=== PATIENT | female | born 1975 | race Caucasian/White ===

== ENCOUNTER 2016-08-05 08:55 | Emergency (ER) | payer MEDICAID ==
[~2016-08-05] VITALS: Ht 157.5 cm; Wt 54.4 kg
[~2016-08-05 08:55] MED LIST: MEXATE2.5 MG PO; PREDNISONE10 MG PO; VOLTAREN PO
[2016-08-05 09:07] VITALS: BP 109/71
--- NOTE | 2016-08-05 09:12 | NUR ---
Patient ambulated to bed 05.
--- NOTE | 2016-08-05 09:15 | NUR ---
41/f bib daughter for R lower chest pain under R breast radiating to rside back. Sts 5/10 pain. Sts fell 8days ago. Hx arthritis. Sts takes tylenol for pain at home, no relief. lung sounds clr. no obvious signs of trauma noted. er md made aware. safety and comfort measures provided.
--- NOTE | 2016-08-05 09:44 | NUR ---
MEDICAL STUDENT AT BEDSIDE.
--- NOTE | 2016-08-05 09:48 | NUR ---
PT TAKEN TO CT.
[2016-08-05] MEDS ORDERED: ACETAMINOPHEN EXTRA STRENGTH 500 MG TAB PO ONE (10:45)
[2016-08-05] MEDS ORDERED: IBUPROFEN 600 MG TAB PO ONE (10:45)
--- NOTE | 2016-08-05 11:08 | NUR ---
PT AMBULATE TO RESTROOM.
--- NOTE | 2016-08-05 11:15 | NUR ---
ORANGE SURVEY GIVEN TO PT.
--- NOTE | 2016-08-05 11:22 | NUR ---
Patient discharged with v/s stable. Written and verbal after care instructions given and explained. Patient alert, oriented and verbalized understanding of instructions. Ambulatory with steady gait WITH DAUGHTER. All questions addressed prior to discharge. ID band removed. Patient advised to follow up with PMD. Opportunity to ask questions provided and answered.
[2016-08-05 11:25] VITALS: BP 111/65
== END 2016-08-05 11:22 | disposition home or self-care (01) ==
LOC: MED 08:55
DX: S20.211A Contusion of right front wall of thorax, initial encounter (principal); M06.9 Rheumatoid arthritis, unspecified; K76.0 Fatty (change of) liver, not elsewhere classified; X58.XXXA Exposure to other specified factors, initial encounter; Y93.89 Activity, other specified; Y92.89 Other specified places as the place of occurrence of the external cause; Y99.8 Other external cause status

== ENCOUNTER 2016-08-22 16:45 | Emergency (ER) | payer MEDICAID ==
[~2016-08-22] VITALS: Ht 157.5 cm; Wt 54.4 kg
--- NOTE | 2016-08-22 18:30 | NUR ---
Patient transferred to bed 3 via wheelchair by tech, accompanied by family. RN evaluating patient at bedside.
--- NOTE | 2016-08-22 18:34 | NUR ---
41F BIB FAMILY C/O FALL X 1630 TODAY; FAMILY STATES PT WAS CLEANING AT HOME, TRIPPED AND FELL DOWN 5 STAIR STEPS; DENIES LOC AT THIS TIME; PT A&OX4, PERRL, DENIES BLURRY VISION OR VISION CHANGES AT THIS TIME; PT C/O THROBBING RT SIDE HEAD PAIN, NON-RADIATING, 7/10 AT THIS TIME; MILD SWELLING NOTED TO SITE; PT NOTED W/ABRASIONS TO RT SHOULDER/RT ELBOW; NO ACTIVE BLEEDING NOTED TO SITES AT THIS TIME; BL LUNG SOUNDS CLEAR, RR EVEN/UNLABORED, SKIN IS WARM/DRY; PT DENIES N/V/D AT THIS TIME; HX: ARTHRITIS. PT RESTING IN BED W/ HOB ELEVATED AND IN LOWEST POSITION; POSITIONED FOR COMFORT; ER MD MADE AWARE OF STATUS. WILL CONTINUE TO MONITOR.
--- NOTE | 2016-08-22 19:11 | NUR ---
Pt report given to RUSS CORDOBA. Transfer of care at this time.
--- NOTE | 2016-08-22 19:14 | NUR ---
PT RESTING IN BED, BLANKET PROVIDED. NO S/S OF DISTRESS NOTED AT THE MOMENT.
--- NOTE | 2016-08-22 19:15 | NUR ---
Dr. Palacios evaluating patient at bedside.
[2016-08-22] MEDS ORDERED: LIDOCAINE/EPI 1% 1:100000 20 ML VIAL INJ ONE (19:17)
[2016-08-22] MEDS ORDERED: ACETAMINOPHEN/CODEINE 300/30MG 1 TAB PO ONE (19:35)
[2016-08-22] MEDS ORDERED: KETOROLAC 30 MG/ML VIAL IM ONE (19:35)
--- NOTE | 2016-08-22 19:43 | NUR ---
PT TAKEN TO XRAY
[2016-08-22] MEDS ORDERED: BACITRACIN OINT 500 UNITS/GM PKT TP ONE (19:58)
--- NOTE | 2016-08-22 20:04 | NUR ---
PT REFUSED NORCO. IGGY SANTACRUZ MADE AWARE.
[2016-08-22 20:24] VITALS: BP 101/64
--- NOTE | 2016-08-22 20:24 | NUR ---
Patient discharged with v/s stable. Written and verbal after care instructions given and explained. Patient alert, oriented and verbalized understanding of instructions. Ambulatory with steady gait. All questions addressed prior to discharge. ID band removed. Patient advised to follow up with PMD THIS WK OR RETURN TO ER IF CONDITION WORSENS. Rx of NAPROSYN given. Patient educated on indication of medication including possible reaction and side effects. Opportunity to ask questions provided and answered.
== END 2016-08-22 20:24 | disposition home or self-care (01) ==
LOC: MED 16:45
DX: S40.011A Contusion of right shoulder, initial encounter (principal); S50.311A Abrasion of right elbow, initial encounter; S09.90XA Unspecified injury of head, initial encounter; M19.90 Unspecified osteoarthritis, unspecified site; W19.XXXA Unspecified fall, initial encounter; Y93.89 Activity, other specified; Y92.89 Other specified places as the place of occurrence of the external cause; Y99.8 Other external cause status
CPT/HCPCS: 70450; 73030; 81025; 96372; 99284; J1885; J2001

== ENCOUNTER 2017-03-04 10:48 | Emergency (ER) | payer MEDICAID ==
[~2017-03-04] VITALS: Ht 157.5 cm; Wt 54.0 kg
[~2017-03-04 10:48] MED LIST changes: +MEX2.5 PO; -MEXATE2.5 MG PO; +PRED10TA5 PO; -PREDNISONE10 MG PO; +VOL25 PO; -VOLTAREN PO
[2017-03-04 11:06] VITALS: BP 124/78
--- NOTE | 2017-03-04 11:22 | NUR ---
PATIENT PRESENTS TO ED AFTER A FALL . PT STATES SHE WAS WALKING ON THE SIDEWALK WHEN SHE TRIPPED ON AN UNEVEN PAVEMENT AND FELL AND HIT HER HEAD AND RIGHT LEG . DENIES N/V/D; SKIN IS PINK/WARM/DRY; AAOX4 WITH EVEN AND STEADY GAIT; LUNGS CLEAR BL; HR EVEN AND REGULAR; PT DENIES ANY FEVER, CP, SOB, OR COUGH AT THIS TIME; PATIENT STATES PAIN OF 7/10 AT THIS TIME; VSS; PATIENT POSITIONED FOR COMFORT; HOB ELEVATED; BEDRAILS UP X2; BED DOWN. ER MD MADE AWARE OF PT STATUS.
[2017-03-04] MEDS ORDERED: KETOROLAC 30 MG/ML VIAL IM ONE (11:50)
[2017-03-04 13:29] VITALS: BP 94/63
== END 2017-03-04 13:30 | disposition home or self-care (01) ==
LOC: MED 10:48
DX: S20.211A Contusion of right front wall of thorax, initial encounter (principal); M06.9 Rheumatoid arthritis, unspecified; W18.39XA Other fall on same level, initial encounter; Y93.89 Activity, other specified; Y92.89 Other specified places as the place of occurrence of the external cause; Y99.8 Other external cause status
CPT/HCPCS: 71101; 81002; 96372; 99284; J1885

== ENCOUNTER 2017-03-27 01:52 | Emergency (ER) | payer MEDICAID ==
[~2017-03-27] VITALS: Ht 154.9 cm; Wt 54.4 kg
[2017-03-27 02:12] VITALS: BP 113/63
--- NOTE | 2017-03-27 03:24 | NUR ---
PT PLACED IN BED 8
--- NOTE | 2017-03-27 03:35 | NUR ---
CAME IN WITH C/O SORETHROAT AND COUGH WITH PHLEGM STARTD AT 1700HOURS.
[2017-03-27] MEDS ORDERED: LIDOCAINE VISCOUS 2% 20 ML UDC PO ONE (03:55)
--- NOTE | 2017-03-27 04:00 | NUR ---
MEDICATED PER ERMDS ORDER, PATIENT TOLERATED WELL.
[2017-03-27 04:15] VITALS: BP 122/75
--- NOTE | 2017-03-27 04:15 | NUR ---
Patient discharged with v/s stable. Written and verbal after care instructions given and explained. Patient verbalized understanding. Ambulatory with steady gait. All questions addressed prior to discharge. Advised to follow up with PMD.
== END 2017-03-27 04:15 | disposition home or self-care (01) ==
LOC: MED 01:52
DX: J02.9 Acute pharyngitis, unspecified (principal); M06.80 Other specified rheumatoid arthritis, unspecified site; Z79.899 Other long term (current) drug therapy
CPT/HCPCS: 99282

== ENCOUNTER 2017-07-08 15:56 | Emergency (ER) | payer MEDICAID ==
[~2017-07-08] VITALS: Ht 157.5 cm; Wt 53.6 kg
[2017-07-08 16:00] VITALS: BP 116/74
--- NOTE | 2017-07-08 16:20 | NUR ---
PATIENT AMB. TO CHAIR #E WITH FAMILY
--- NOTE | 2017-07-08 16:32 | NUR ---
DR. CABALLERO ASSESSING PATIENT IN BED#E
[2017-07-08] MEDS ORDERED: HYDROGEN PEROXIDE 3% 240 ML BTL TP ONE (16:45)
--- NOTE | 2017-07-08 16:50 | NUR ---
C/O RIGHT EAR PAIN WITH DECREASED HEARING X 1 WK---- FEELS CONGESTED . DENIES N/V/D; SKIN IS PINK/WARM/DRY; AAOX4 WITH EVEN AND STEADY GAIT; LUNGS CLEAR BL; HR EVEN AND REGULAR; PT DENIES ANY FEVER, CP, SOB, OR COUGH AT THIS TIME; PATIENT STATES PAIN OF 3/10 AT THIS TIME; VSS; ER MD MADE AWARE OF PT STATUS.
[2017-07-08 18:31] VITALS: BP 120/70
--- NOTE | 2017-07-08 18:32 | NUR ---
Patient discharged with v/s stable. Written and verbal after care instructions given and explained. Patient verbalized understanding. Wheel Chair Assisted with to car. All questions addressed prior to discharge. Advised to follow up with PMD.
== END 2017-07-08 18:32 | disposition home or self-care (01) ==
LOC: MED 15:56
DX: H92.01 Otalgia, right ear (principal); M19.90 Unspecified osteoarthritis, unspecified site
CPT/HCPCS: 99283

== ENCOUNTER 2017-09-23 21:10 | Emergency (ER) | payer MEDICAID ==
[~2017-09-23] VITALS: Ht 152.4 cm; Wt 52.2 kg
[2017-09-23 21:22] VITALS: BP 114/73
[2017-09-23 22:52] LABS: BASOPHILS # (AUTO) 0.1 K/uL (0.00-0.22); BASOPHILS % (AUTO) 0.9 % (0.0-2.0); EOSINOPHILS # (AUTO) 0.4 K/uL (0-0.4); EOSINOPHILS % (AUTO) 4.6 % (0.0-4.0); HEMATOCRIT 31.8 % (36-48); LYMPHOCYTES % (AUTO) 35.2 % (20.5-51.1); MEAN CORPUSCULAR HEMOGLOBIN 23 pg (27-31); MEAN CORPUSCULAR HGB CONC 31 g/dL (33-37); MEAN CORPUSCULAR VOLUME 73.7 fL (80-94); MONOCYTES # (AUTO) 0.7 K/uL (0.8-1.0); NEUTROPHILS # (AUTO) 4.4 K/uL (1.8-7.7); NEUTROPHILS % (AUTO) 51.3 % (42.2-75.2); PLATELET COUNT (AUTO) 403 K/uL (140-450); RED BLOOD CELL COUNT(AUTO) 4.32 MIL/uL (4.20-5.40); RED CELL DISTRIBUTION WIDTH 19.4 % (11.6-13.7); WHITE BLOOD COUNT (AUTO) 8.6 K/uL (4.8-10.8)
[2017-09-23 23:08] LABS: PROTHROMBIN TIME 10.6 secs (10.8-13.4)
[2017-09-23 23:15] LABS: ANION GAP 10.6 (8-16); CARBON DIOXIDE 25.9 mmol/L (21-32); CREATININE 0.4 mg/dL (0.6-1.3); POTASSIUM 3.5 mmol/L (3.5-5.1)
[2017-09-23 23:19] LABS: ALBUMIN 3.5 g/dL (3.4-5.0); TOTAL BILIRUBIN 0.4 mg/dL (0.0-1.0)
[2017-09-23 23:55] VITALS: BP 119/81
== END 2017-09-23 23:55 | disposition home or self-care (01) ==
LOC: MED 21:10
DX: R07.89 Other chest pain (principal); J45.909 Unspecified asthma, uncomplicated; M06.9 Rheumatoid arthritis, unspecified; Z79.899 Other long term (current) drug therapy
CPT/HCPCS: 36415; 71045; 80053; 83880; 84484; 85025; 85610; 85730; 99285; Q0092

== ENCOUNTER 2017-10-03 15:31 | Emergency (ER) | payer MEDICAID ==
[~2017-10-03] VITALS: Ht 154.9 cm; Wt 51.7 kg
[2017-10-03 16:06] VITALS: BP 98/59
--- NOTE | 2017-10-03 16:11 | NUR ---
PT WHEELED TO BED 4
--- NOTE | 2017-10-03 16:13 | NUR ---
REPORT GIVEN TO RUSS MCCALLUM
--- NOTE | 2017-10-03 16:20 | NUR ---
C/O COUGH, SOB, X 1 WK HX; ARTHRITIS, WEAKNESS X 5 YRS, MS RX; METROTREXATE, PREDNISONE
--- NOTE | 2017-10-03 16:49 | NUR ---
XRAY AT BEDSIDE
[2017-10-03 17:39] VITALS: BP 101/60
--- NOTE | 2017-10-03 17:39 | NUR ---
Patient discharged with v/s stable. Written and verbal after care instructions given and explained. Patient alert, oriented and verbalized understanding of instructions. Wheel Chair Assisted with to car. All questions addressed prior to discharge. ID band removed. Patient advised to follow up with PMD. Rx of PROMETHAZINE DM 6.25MG-15MG/5ML given. Patient educated on indication of medication including possible reaction and side effects. Opportunity to ask questions provided and answered.
== END 2017-10-03 17:39 | disposition home or self-care (01) ==
LOC: MED 15:31
DX: R05 Cough (principal); M19.90 Unspecified osteoarthritis, unspecified site; Z79.899 Other long term (current) drug therapy
CPT/HCPCS: 71045; 93005; 99284; Q0092

== ENCOUNTER 2018-03-21 16:33 | Emergency (ER) | payer MEDICAID ==
[~2018-03-21] VITALS: Ht 154.9 cm; Wt 53.5 kg
[2018-03-21 16:52] VITALS: BP 101/75
--- NOTE | 2018-03-21 17:47 | NUR ---
BIB BY VIA WHEEL CHAIR WITH THE C/O S/P MECHANICAL FALL AT HOME. PT NOTED WITH HEMATOMA ON BACK OF HEAD. NO ACTIVE BLEEDING NOTED. PT DENIES LOC, BLURRED VISION, DIZZINESS. ABDOMEN SOFT, ROUND AND NON-TENDER. ACTIVE BOWEL SOUND. C/O PAIN ON BACK OF HEAD 7/10. DENIES N/V/D; SKIN IS PINK/WARM/DRY; AAOX4 WITH EVEN LUNGS CLEAR BL; HR EVEN AND REGULAR; PT DENIES ANY FEVER, CP, SOB, OR COUGH AT THIS TIME; PATIENT STATES PAIN OF /10 AT THIS TIME; VSS; PATIENT POSITIONED FOR COMFORT; HOB ELEVATED; BEDRAILS UP X2; BED DOWN. ER MD MADE AWARE OF PT STATUS.
--- NOTE | 2018-03-21 18:06 | NUR ---
Patient being evaluated by physician at bedside.
[2018-03-21] MEDS ORDERED: ACETAMINOPHEN 325 MG TAB PO ONE (18:10)
[2018-03-21 19:00] VITALS: BP 110/78
== END 2018-03-21 19:00 | disposition home or self-care (01) ==
LOC: MED 16:33
DX: S09.90XA Unspecified injury of head, initial encounter (principal); Z79.899 Other long term (current) drug therapy; W18.09XA Striking against other object with subsequent fall, initial encounter; Y93.89 Activity, other specified; Y92.009 Unspecified place in unspecified non-institutional (private) residence as the place of occurrence of the external cause; Y99.8 Other external cause status
CPT/HCPCS: 81025; 99283

== ENCOUNTER 2018-06-01 17:28 | Emergency (ER) | payer MEDICAID ==
[~2018-06-01] VITALS: Ht 154.9 cm; Wt 49.4 kg
[2018-06-01 17:35] VITALS: BP 127/83
--- NOTE | 2018-06-01 17:35 | NUR ---
PATIENT ASSISTED VIA WHEELCHAIR TO BED 9.
--- NOTE | 2018-06-01 17:43 | NUR ---
Note undone in EDM - 06/01/18 at 1745 by LETI PT C/O COUGH X3 WEEKS. REPORTS 6/10 ACHING UPPER BACK PAIN . DENIES N/V/D; SKIN IS PINK/WARM/DRY; AAOX4 WITH EVEN AND STEADY GAIT; LUNGS CLEAR BL; HR EVEN AND REGULAR; PT DENIES ANY FEVER, CP, SOB,AT THIS TIME; PATIENT STATES PAIN OF 6/10 AT THIS TIME; VSS; PATIENT POSITIONED FOR COMFORT; HOB ELEVATED; BEDRAILS UP X2; BED DOWN. ER MD MADE AWARE OF PT STATUS.
--- NOTE | 2018-06-01 17:45 | NUR ---
PT C/O COUGH X3 WEEKS. REPORTS 6/10 ACHING UPPER BACK PAIN . DENIES N/V/D; SKIN IS PINK/WARM/DRY; AAOX4, BROUGHT IN BY WHEELCHAIR. LUNGS CLEAR BL; HR EVEN AND REGULAR; PT DENIES ANY FEVER, CP, SOB,AT THIS TIME; PATIENT STATES PAIN OF 6/10 AT THIS TIME; VSS; PATIENT POSITIONED FOR COMFORT; HOB ELEVATED; BEDRAILS UP X2; BED DOWN. ER MD MADE AWARE OF PT STATUS.
[2018-06-01] MEDS ORDERED: KETOROLAC 60 MG/2 ML VIAL IM ONE (18:25)
[2018-06-01 19:04] VITALS: BP 108/70
--- NOTE | 2018-06-01 19:05 | NUR ---
Patient discharged with v/s stable. Written and verbal after care instructions given and explained. Patient alert, oriented and verbalized understanding of instructions. Wheel Chair Assisted with to car. All questions addressed prior to discharge. ID band removed. Patient advised to follow up with PMD. Rx of MOTRIN AND PREDINISONE given. Patient educated on indication of medication including possible reaction and side effects. Opportunity to ask questions provided and answered.
== END 2018-06-01 19:05 | disposition home or self-care (01) ==
LOC: MED 17:28
DX: R05 Cough (principal); M54.6 Pain in thoracic spine; M06.9 Rheumatoid arthritis, unspecified; Z79.1 Long term (current) use of non-steroidal anti-inflammatories (NSAID); Z79.899 Other long term (current) drug therapy
CPT/HCPCS: 96372; 99283; J1885

== ENCOUNTER 2018-09-24 15:27 | Emergency (ER) | payer MEDICAID ==
[~2018-09-24] VITALS: Ht 154.9 cm; Wt 49.9 kg
[2018-09-24 15:40] VITALS: BP 107/61
--- NOTE | 2018-09-24 15:54 | NUR ---
Pt w/c assisted to bed 8.
--- NOTE | 2018-09-24 15:54 | NUR ---
BIB . DAUGHTER AT BEDSIDE. PT AAO X 4 C/O EPIGASTRIC ABD PAIN X5 DAYS, DENIES N/V/D, FEVER. ABDOMEN NON TENDER TO TOUCH. HOB UP. BED SIDE RAILS UP X1. HOB UP. ON LOW BED POSITION, LOCKED. ER MADE AWARE OF PT STATUS.
[2018-09-24 16:29] LABS: BILIRUBIN,URINE NEGATIVE (NEGATIVE); BLOOD, URINE NEGATIVE (NEGATIVE); COLOR,URINE YELLOW (YELLOW); LEUKOCYTE ESTERASE ,URINE 1+ (NEGATIVE); NITRITE, URINE NEGATIVE (NEGATIVE); PH,URINE 8.5 (5.0-9.0); UGLUCOSE NEGATIVE (NEGATIVE)
[2018-09-24 16:31] LABS: BASOPHILS # (AUTO) 0.1 K/uL (0.00-0.22); BASOPHILS % (AUTO) 0.5 % (0.0-2.0); EOSINOPHILS # (AUTO) 0.1 K/uL (0-0.4); HEMATOCRIT 31.4 % (36-48); HEMOGLOBIN 9.3 g/dL (12.0-16.0); LYMPHOCYTES # (AUTO) 3.6 K/uL (2.5-16.5); LYMPHOCYTES % (AUTO) 35.6 % (20.5-51.1); MEAN CORPUSCULAR HEMOGLOBIN 20 pg (27-31); MEAN CORPUSCULAR HGB CONC 30 g/dL (33-37); MEAN CORPUSCULAR VOLUME 66.2 fL (80-94); MONOCYTES # (AUTO) 0.8 K/uL (0.8-1.0); MONOCYTES % (AUTO) 7.9 % (1.7-9.3); NEUTROPHILS # (AUTO) 5.5 K/uL (1.8-7.7); PLATELET COUNT (AUTO) 353 K/uL (140-450); RED BLOOD CELL COUNT(AUTO) 4.74 MIL/uL (4.20-5.40); RED CELL DISTRIBUTION WIDTH 19.9 % (11.6-13.7)
[2018-09-24 16:32] LABS: APPEARANCE,URINE HAZY (CLEAR)
[2018-09-24 16:34] LABS: RBC,URINE 0-5 /HPF (0-5)
[2018-09-24 16:41] LABS: ANION GAP 11.5 (8-16); CREATININE 0.4 mg/dL (0.6-1.3); POTASSIUM 3.5 mmol/L (3.5-5.1)
[2018-09-24] MEDS ORDERED: NACL 0.9% 1,000 ML IV SCH (16:44)
[2018-09-24] MEDS ORDERED: NACL 0.9% 1,000 ML IV ONE (16:44)
[2018-09-24] MEDS ORDERED: FAMOTIDINE 20 MG/2 ML VIAL IVP ONE (16:45)
[2018-09-24] MEDS ORDERED: diphenhydrAMINE 50 MG/ML VIAL IVP ONE (16:45)
[2018-09-24] MEDS ORDERED: MORPHINE SULFATE 2 MG/ML SYR IVP ONE (16:45)
[2018-09-24] MEDS ORDERED: ONDANSETRON 4 MG/2 ML VIAL IVP ONE (16:45)
[2018-09-24] MEDS ORDERED: DEXAMETHASONE 10 MG/ML VIAL IVP ONE (16:45)
[2018-09-24 16:47] LABS: ALBUMIN 3.6 g/dL (3.4-5.0); TOTAL BILIRUBIN 0.6 mg/dL (0.0-1.0)
--- NOTE | 2018-09-24 16:58 | NUR ---
Patient taken to CT scan via gurney by [employer].
--- NOTE | 2018-09-24 17:09 | NUR ---
Pt returned from CT and placed in bed 8.
[2018-09-24 17:31] LABS: AMYLASE 66 U/L (25-115); LIPASE 218 U/L (73-393)
[2018-09-24 18:22] VITALS: BP 118/61
[2018-09-24] MEDS ORDERED: cefTRIAXone 1,000 MG VIAL ONE (19:07)
--- NOTE | 2018-09-24 19:17 | NUR ---
RECIEVED REPORT FROM RUSS [place]. ASSUMED CARE AT THIS TIME.
--- NOTE | 2018-09-24 19:40 | NUR ---
Patient discharged with v/s stable. Written and verbal after care instructions given and explained. Patient alert, oriented and verbalized understanding of instructions. Wheel Chair Assisted by spouse. All questions addressed prior to discharge. ID band removed. Patient advised to follow up with PMD. Rx of Septra and Prednisone given. Patient educated on indication of medication including possible reaction and side effects. Opportunity to ask questions provided and answered.
== END 2018-09-24 19:40 | disposition home or self-care (01) ==
LOC: MED 15:27
DX: N39.0 Urinary tract infection, site not specified (principal); Z79.899 Other long term (current) drug therapy
CPT/HCPCS: 36415; 74176; 80053; 81001; 81025; 82150; 83690; 85025; 87086; 93005; 96365; 96375; 99284; J0696; J1100; J1200; J2405; J3490; J7030; J2270

== ENCOUNTER 2018-09-28 12:11 | Emergency (ER) | payer MEDICAID ==
[~2018-09-28] VITALS: Ht 160 cm; Wt 48.3 kg
[2018-09-28 12:17] VITALS: BP 106/76
--- NOTE | 2018-09-28 12:24 | NUR ---
PATIENT WHEELCHAIR ASSISTED TO BED 10.
--- NOTE | 2018-09-28 12:27 | NUR ---
43 Y FEMALE BIB VIA WHEELCHAIR C/O EPIGASTRIC PAIN X 3 DAYS, WORSE WITH FOOD. PAIN 10/10. DENIES N/V/D. LAST BM YESTERDAY, NORMAL. ABDOMEN TENDER TO TOUCH, SOFT AND ROUND. BOWEL SOUNDS ACTIVE IN ALL 4 QUADRANTS. VSS AT THIS TIME. BED IS DOWN, LOCKED, BED RAIL X 1, ERMD TO SEE PT. MED HX: MS RX- PREDNISONE, METHOTREXATE, VOLTAREN
--- NOTE | 2018-09-28 12:37 | NUR ---
DR STEWARD AT BEDSIDE
[2018-09-28] MEDS ORDERED: ONDANSETRON 4 MG ODT PO ONE (12:50)
[2018-09-28] MEDS ORDERED: LIDOCAINE VISCOUS 2% 20 ML UDC PO ONE (12:50)
[2018-09-28] MEDS ORDERED: ALUMINUM HYD/MAG/SIMETHICONE 30 ML UDC PO ONE (12:50)
[2018-09-28] MEDS ORDERED: FAMOTIDINE 20 MG TAB PO ONE (12:50)
--- NOTE | 2018-09-28 13:41 | NUR ---
Patient discharged with v/s stable. Written and verbal after care instructions given and explained. Patient alert, oriented and verbalized understanding of instructions. Wheel Chair Assisted BY TO WHEELCHAIR. All questions addressed prior to discharge. ID band removed. Patient advised to follow up with PMD. Rx of ZOFRAN, OMEPRAZOLE given. Patient educated on indication of medication including possible reaction and side effects. Opportunity to ask questions provided and answered.
[2018-09-28 13:44] VITALS: BP 112/75
== END 2018-09-28 13:41 | disposition home or self-care (01) ==
LOC: MED 12:11
DX: K29.70 Gastritis, unspecified, without bleeding (principal); G35 Multiple sclerosis; N39.0 Urinary tract infection, site not specified; M19.90 Unspecified osteoarthritis, unspecified site; Z90.49 Acquired absence of other specified parts of digestive tract; Z79.899 Other long term (current) drug therapy
CPT/HCPCS: 99284; Q0162

== ENCOUNTER 2018-12-28 12:12 | Emergency (ER) | payer MEDICAID ==
[~2018-12-28] VITALS: Ht 154.9 cm; Wt 49.9 kg
[2018-12-28 12:18] VITALS: BP 118/71
--- NOTE | 2018-12-28 12:29 | NUR ---
PT WHEEL CHAIR ASSISTED TO BED 6 ACCOMPANIED BY . PT WAS TRANSFERRED FROM WHEEL CHAIR TO BED WITH 2 ASSIST. PT WAS GIVEN URINE CUP.
--- NOTE | 2018-12-28 12:37 | NUR ---
PT PRESENTS TO ED WITH C/O ABDOMINAL PAIN X 1 DAY. PT REPORTS DYSURIA, URGENCY AND BURNING SENSATION WHEN URINATING. +NAUSEA AND DIARRHEA YESTERDAY, NOT AT THIS TIME. DENIES VOMITING, CHILLS OR FEVER. VSS. ERMD TO EVALUATE PT.
[2018-12-28] MEDS ORDERED: NACL 0.9% 1,000 ML IV ONE (13:20)
[2018-12-28] MEDS ORDERED: KETOROLAC 30 MG/ML VIAL IVP ONE (13:20)
--- NOTE | 2018-12-28 13:45 | NUR ---
Pt taken to x-ray.
[2018-12-28 13:50] LABS: HEMOGLOBIN 9.1 g/dL (12.0-16.0); MONOCYTES # (AUTO) 0.7 K/uL (0.8-1.0); NEUTROPHILS # (AUTO) 6.2 K/uL (1.8-7.7)
--- NOTE | 2018-12-28 13:54 | NUR ---
Pt is back from x-ray and placed in bed 6.
[2018-12-28 14:03] LABS: CARBON DIOXIDE 21.7 mmol/L (21-32); CREATININE 0.4 mg/dL (0.6-1.3); POTASSIUM 3.7 mmol/L (3.5-5.1)
[2018-12-28 14:08] LABS: APPEARANCE,URINE SL CLOUDY (CLEAR); BILIRUBIN,URINE NEGATIVE (NEGATIVE); BLOOD, URINE NEGATIVE (NEGATIVE); COLOR,URINE YELLOW (YELLOW); LEUKOCYTE ESTERASE ,URINE NEGATIVE (NEGATIVE); NITRITE, URINE NEGATIVE (NEGATIVE); PH,URINE 6.5 (5.0-9.0); UGLUCOSE NEGATIVE (NEGATIVE)
[2018-12-28 14:08] LABS: ALBUMIN 3.6 g/dL (3.4-5.0); TOTAL BILIRUBIN 0.5 mg/dL (0.0-1.0)
[2018-12-28 14:11] LABS: BASOPHILS % (AUTO) 0.4 % (0.0-2.0); EOSINOPHILS # (AUTO) 0.2 K/uL (0-0.4); EOSINOPHILS % (AUTO) 2.1 % (0.0-4.0); HEMATOCRIT 30.4 % (36-48); LYMPHOCYTES # (AUTO) 4.2 K/uL (2.5-16.5); LYMPHOCYTES % (AUTO) 37.2 % (20.5-51.1); MEAN CORPUSCULAR HEMOGLOBIN 19 pg (27-31); MEAN CORPUSCULAR HGB CONC 30 g/dL (33-37); MEAN CORPUSCULAR VOLUME 64.4 fL (80-94); MONOCYTES % (AUTO) 5.9 % (1.7-9.3); NEUTROPHILS % (AUTO) 54.4 % (42.2-75.2); PLATELET COUNT (AUTO) 418 K/uL (140-450); RED BLOOD CELL COUNT(AUTO) 4.72 MIL/uL (4.20-5.40); RED CELL DISTRIBUTION WIDTH 21.6 % (11.6-13.7); WHITE BLOOD COUNT (AUTO) 11.4 K/uL (4.8-10.8)
[2018-12-28 16:21] LABS: RBC,URINE 0-5 /HPF (0-5); WBC,URINE 0-5 /HPF (0-5)
[2018-12-28 19:19] VITALS: BP 131/80
--- NOTE | 2018-12-28 19:19 | NUR ---
IV removed, catheter intact and site benign. Applied folded 4x4 gauze and tape to stop bleeding.
--- NOTE | 2018-12-28 19:20 | NUR ---
Patient discharged with v/s stable. Written and verbal after care instructions given and explained. Patient alert, oriented and verbalized understanding of instructions. All questions addressed prior to discharge. ID band removed. 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 Rx of Miralax given. Patient educated on indication of medication including possible reaction and side effects. Opportunity to ask questions provided and answered.
== END 2018-12-28 19:20 | disposition home or self-care (01) ==
LOC: MED 12:12
DX: R10.9 Unspecified abdominal pain (principal); R19.7 Diarrhea, unspecified; R30.0 Dysuria; R39.15 Urgency of urination; M06.9 Rheumatoid arthritis, unspecified; G35 Multiple sclerosis; Z79.899 Other long term (current) drug therapy; Z90.49 Acquired absence of other specified parts of digestive tract
CPT/HCPCS: 36415; 74021; 74177; 80053; 81001; 81025; 83690; 84703; 85025; 96361; 96374; 99284; J1885; J7030; Q9967

== ENCOUNTER 2019-04-07 20:04 | Emergency (ER) | payer MEDICAID ==
[~2019-04-07] VITALS: Ht 154.9 cm; Wt 51.3 kg
[2019-04-07 20:18] VITALS: BP 112/62
--- NOTE | 2019-04-07 20:18 | NUR ---
44 Y/O FEMALE BIB VIA WHEELCHAIR C/O OF EPIGASTRIC PAIN X1 DAY. PAIN IS A 9/10 ACUTE, SHARP, NONRADIATING PAIN. ABDOMINAL SOUNDS HEARD ON ALL FOUR QUADRANTS; PALPATION TENDER TO TOUCH IN THE EPIGASTRIC REGION. DENIES N/V/D; LAST BM WAS 04/06/19-NORMAL. NO CHANGES IN APPETITE. ERMD MADE AWARE OF STATUS. SIDE RAILSX1. PLACED ON MONITOR. PMH:ARTHRITIS; MULTIPLE SCLEROSIS RX:NAPROXEN; PREDNISONE; NUEDEXTA; RILUZOLE
[2019-04-07] MEDS ORDERED: DICYCLOMINE HCL LIQUID 20 MG, ALUMINUM HYD/MAG/SIMETHICONE 30 ML, LIDOCAINE VISCOUS 2% ... PO ONE ×6 (21:30→23:55)
--- NOTE | 2019-04-07 21:38 | NUR ---
EKG PERFORMED AT BEDSIDE
--- NOTE | 2019-04-07 21:53 | NUR ---
Ultrasound at bedside.
[2019-04-07 22:06] LABS: BASOPHILS # (AUTO) 0.1 K/uL (0.00-0.22); BASOPHILS % (AUTO) 0.8 % (0.0-2.0); EOSINOPHILS # (AUTO) 0.4 K/uL (0-0.4); EOSINOPHILS % (AUTO) 3.6 % (0.0-4.0); HEMATOCRIT 27.4 % (36-48); HEMOGLOBIN 8.1 g/dL (12.0-16.0); LYMPHOCYTES # (AUTO) 3.3 K/uL (2.5-16.5); LYMPHOCYTES % (AUTO) 33.8 % (20.5-51.1); MEAN CORPUSCULAR HEMOGLOBIN 18 pg (27-31); MEAN CORPUSCULAR HGB CONC 29 g/dL (33-37); MEAN CORPUSCULAR VOLUME 62.6 fL (80-94); MONOCYTES # (AUTO) 0.9 K/uL (0.8-1.0); MONOCYTES % (AUTO) 9.4 % (1.7-9.3); NEUTROPHILS # (AUTO) 5.2 K/uL (1.8-7.7); NEUTROPHILS % (AUTO) 52.4 % (42.2-75.2); PLATELET COUNT (AUTO) 547 K/uL (140-450); RED BLOOD CELL COUNT(AUTO) 4.39 MIL/uL (4.20-5.40); RED CELL DISTRIBUTION WIDTH 21.2 % (11.6-13.7); WHITE BLOOD COUNT (AUTO) 9.9 K/uL (4.8-10.8)
[2019-04-07 22:23] LABS: ALBUMIN 3.4 g/dL (3.4-5.0); ANION GAP 14.5 (8-16); CARBON DIOXIDE 24.1 mmol/L (21-32); CREATININE 0.3 mg/dL (0.6-1.3); POTASSIUM 3.6 mmol/L (3.5-5.1); TOTAL BILIRUBIN 0.7 mg/dL (0.0-1.0)
[2019-04-07 23:11] LABS: APPEARANCE,URINE HAZY (CLEAR); BILIRUBIN,URINE NEGATIVE (NEGATIVE); BLOOD, URINE NEGATIVE (NEGATIVE); COLOR,URINE YELLOW (YELLOW); LEUKOCYTE ESTERASE ,URINE NEGATIVE (NEGATIVE); NITRITE, URINE POSITIVE (NEGATIVE); UGLUCOSE NEGATIVE (NEGATIVE)
[2019-04-07 23:30] LABS: RBC,URINE 0-5 /HPF (0-5)
--- NOTE | 2019-04-07 23:50 | NUR ---
PT LAYING IN BED, RR EVEN AND UNLABORED. RR EVEN AND UNLABORED. REPORTS 9 EPIGASTRIC PAIN, DR THOMAS MADE AWARE.
[2019-04-08 00:37] VITALS: BP 100/74
--- NOTE | 2019-04-08 00:37 | NUR ---
Patient discharged with v/s stable. Written and verbal after care instructions given and explained. Patient alert, oriented and verbalized understanding of instructions. Ambulatory with steady gait. All questions addressed prior to discharge. ID band removed. Patient advised to follow up with PMD. Rx of RANITIDINE; MAALOX given. Patient educated on indication of medication including possible reaction and side effects. Opportunity to ask questions provided and answered.
--- NOTE | 2019-04-10 16:47 | NUR ---
SPOKE WITH PATIENT AND UPDATED HER ON URINE CULTURE RESULTS. I ADVISED PATIENT SHE WOULD NEED A RX. PATIENT'S PREFERRED PHARMACY IS [facility] ON . PHONE NUMBER IS [phone]. I CALLED AND SPOKE TO PHARMACIST TO PROVIDE NEW RX FOR MACROBID 100MG PO BID X20 TABLETS. PT ADVISED TO FOLLOW UP WITH PHARMAMCY IN APPROXIMATELY 1 HOUR TO SEE IF RX IS READY.
== END 2019-04-08 00:37 | disposition home or self-care (01) ==
LOC: MED 20:04
DX: K29.70 Gastritis, unspecified, without bleeding (principal); M19.90 Unspecified osteoarthritis, unspecified site; Z79.1 Long term (current) use of non-steroidal anti-inflammatories (NSAID); Z79.899 Other long term (current) drug therapy
CPT/HCPCS: 36415; 71045; 80053; 81001; 81025; 82150; 83690; 84703; 85025; 87086; 87186; 93005; 99284; Q0092

== ENCOUNTER 2019-09-27 10:52 | Emergency (ER) | payer MEDICAID ==
[~2019-09-27] VITALS: Ht 160 cm; Wt 52.2 kg
[2019-09-27 10:56] VITALS: BP 105/60
--- NOTE | 2019-09-27 10:59 | NUR ---
Patient to bed 11. RN evaluating patient at bedside.
--- NOTE | 2019-09-27 11:09 | NUR ---
44 YO WHEELCHAIR BOUND PT BIB C/O LOWER RIB PAIN SINCE YESTERDAY S/P FELL ON STAIR RAIL. NO BRUISING, SWELLING, ERYTHEMA, OR DEFORMITY NOTICED ON THE AFFECTED AREA, TENDER TO TOUCH. PT DENIES ANY FEVER, CP, SOB, OR COUGH AT THIS TIME; PATIENT STATES PAIN OF 8/10 AT THIS TIME; VSS; PATIENT POSITIONED FOR COMFORT; HOB ELEVATED; BEDRAILS UP X1; BED DOWN. ER MD MADE AWARE OF PT STATUS.
--- NOTE | 2019-09-27 11:29 | NUR ---
Dr. Oakley is evaluating the patient at bedside.
[2019-09-27] MEDS ORDERED: HYDROcodone/APAP 5/325 MG 1 TAB TAB PO ONE (11:35)
--- NOTE | 2019-09-27 11:46 | NUR ---
NORCO PO ADMINISTERED, FOLLOWED WITH WATER
--- NOTE | 2019-09-27 12:00 | NUR ---
Patient taken to CT scan via gurney by shruthi, accompanied by family.
[2019-09-27 13:50] VITALS: BP 92/56
--- NOTE | 2019-09-27 13:50 | NUR ---
Patient discharged with v/s stable. Written and verbal after care instructions given and explained. Patient alert, oriented and verbalized understanding of instructions. WHEELCHAIRED BY . All questions addressed prior to discharge. ID band removed. Patient advised to follow up with PMD. Rx of NORCO given. Patient educated on indication of medication including possible reaction and side effects. Opportunity to ask questions provided and answered.
== END 2019-09-27 13:50 | disposition home or self-care (01) ==
LOC: MED 10:52
DX: S20.212A Contusion of left front wall of thorax, initial encounter (principal); Z79.899 Other long term (current) drug therapy; W08.XXXA Fall from other furniture, initial encounter; Y93.89 Activity, other specified; Y92.099 Unspecified place in other non-institutional residence as the place of occurrence of the external cause; Y99.8 Other external cause status
CPT/HCPCS: 71100; 71250; 99284

== ENCOUNTER 2020-03-18 11:13 | Emergency (ER) | payer MEDICAID ==
[~2020-03-18] VITALS: Ht 154.9 cm; Wt 49.9 kg
[2020-03-18 11:19] VITALS: BP 116/74
--- NOTE | 2020-03-18 11:30 | NUR ---
PATIENT PRESENTS TO ED WITH C/O SOB, COUGH AND CONGESTION . PT STATES , SX HAVE BEEN PRESENT SINCE RUNNING OUT OF MS MEDICATION 20 DAYS AGO, NUEDEXTA 20, 10 MG PO BID. DENIES N/V/D; SKIN IS PINK/WARM/DRY; AAOX4 WITH EVEN AND STEADY GAIT; LUNGS CLEAR BL; HR EVEN AND REGULAR; PT DENIES ANY FEVER, CP, SOB, OR COUGH AT THIS TIME; PATIENT STATES MUSCLE PAIN OF 5/10 AT THIS TIME; VSS; PATIENT POSITIONED FOR COMFORT; HOB ELEVATED; BEDRAILS UP X2; BED DOWN. ER MD MADE AWARE OF PT STATUS.
--- NOTE | 2020-03-18 11:40 | NUR ---
DR. GALVAN AT BEDSIDE FOR EXAM
--- NOTE | 2020-03-18 11:43 | NUR ---
Dr. Us is evaluating the patient at bedside.
[2020-03-18] MEDS ORDERED: IBUPROFEN 600 MG TAB PO ONE (11:50)
[2020-03-18] MEDS ORDERED: HYDROcodone/APAP 5/325 MG 1 TAB TAB PO ONE (11:50)
[2020-03-18 12:43] LABS: ALBUMIN 3.7 g/dL (3.4-5.0); ANION GAP 14.9 (8-16); CARBON DIOXIDE 21.8 mmol/L (21-32); CREATININE 0.3 mg/dL (0.6-1.3); POTASSIUM 3.7 mmol/L (3.5-5.1); TOTAL BILIRUBIN 0.6 mg/dL (0.0-1.0)
[2020-03-18 13:09] LABS: HEMATOCRIT 26.7 % (36-48); HEMOGLOBIN 7.8 g/dL (12.0-16.0); MEAN CORPUSCULAR HEMOGLOBIN 17 pg (27-31); MEAN CORPUSCULAR HGB CONC 29 g/dL (33-37); MEAN CORPUSCULAR VOLUME 56.7 fL (80-94); PLATELET COUNT (AUTO) 426 K/uL (140-450); RED BLOOD CELL COUNT(AUTO) 4.71 MIL/uL (4.20-5.40); RED CELL DISTRIBUTION WIDTH 22.1 % (11.6-13.7); WHITE BLOOD COUNT (AUTO) 9.6 K/uL (4.8-10.8)
[2020-03-18 13:28] LABS: LYMPHOCYTES % (MANUAL) 33 % (20-46)
[2020-03-18 13:29] LABS: EOSINOPHILS % (MANUAL) 4 % (0-4); MONOCYTES % (MANUAL) 3 % (5-12)
--- NOTE | 2020-03-18 14:00 | NUR ---
RESTING COMFORTABLY, RESPIRATIONS REGULAR AND UNLABORED
[2020-03-18 15:42] VITALS: BP 116/74
--- NOTE | 2020-03-18 15:44 | NUR ---
Patient discharged with v/s stable. Written and verbal after care instructions given and explained. Patient alert, oriented and verbalized understanding of instructions. Wheel Chair Assisted with to home. All questions addressed prior to discharge. ID band removed. Patient advised to follow up with PMD. Rx of NORCO given. Patient educated on indication of medication including possible reaction and side effects. Opportunity to ask questions provided and answered.
== END 2020-03-18 15:44 | disposition home or self-care (01) ==
LOC: MED 11:13
DX: R05 Cough (principal); R06.02 Shortness of breath; Z79.899 Other long term (current) drug therapy
CPT/HCPCS: 36415; 71045; 80053; 85025; 99284

== ENCOUNTER 2020-09-29 11:33 | Emergency (ER) | payer MEDICAID ==
[~2020-09-29] VITALS: Ht 157.5 cm; Wt 47.6 kg
[2020-09-29 11:41] VITALS: BP 97/63
--- NOTE | 2020-09-29 11:45 | NUR ---
PATIENT WHEELCHAIR ASSISTED TO LOBBY
--- NOTE | 2020-09-29 11:58 | NUR ---
PATIENT WHEELCHAIR ASSISTED TO BED 11 ACCOMPANIED BY DAUGHTER
--- NOTE | 2020-09-29 12:02 | NUR ---
45 Y/O FEAMLE PT BIB DAUGHTER C/O SWELLING TO BOTTOM OF TONGUE SINCE LAST NIGHT. PT STATES MINOR DIFFICULTY SWALLOWING. PT STATES 2/10 BURNING DISCOMFORT. WHITE BUMPS NOTED TO MOUTH. DENIES ANY RECENT FEVER, OR COUGH. MEDHX: MULTIPLE SCLEROSIS, ARTHRITIS NKA
--- NOTE | 2020-09-29 12:16 | NUR ---
Dr. Grant is evaluating the patient at bedside.
[2020-09-29] MEDS ORDERED: LIDOCAINE VISCOUS 2% 20 ML UDC PO ONE (13:05)
[2020-09-29] MEDS ORDERED: AMOXIL/CLAVULANATE 875/125 MG 1 TAB PO ONE (13:05)
[2020-09-29] MEDS ORDERED: AMOX1TAB8 PO (13:19)
[2020-09-29] MEDS ORDERED: PRED20TA5 PO (13:19)
[2020-09-29] MEDS ORDERED: CHLO473S62 PO (13:19)
--- NOTE | 2020-09-29 13:37 | NUR ---
Patient discharged with v/s stable. Written and verbal after care instructions given and explained. Patient alert, oriented and verbalized understanding of instructions. Wheel Chair Assisted with DAUGHTER. All questions addressed prior to discharge. ID band removed. Patient advised to follow up with PMD. Rx of AMOXICILLIN, CHLORHEXIDINE, PREDNISONE given. Patient educated on indication of medication including possible reaction and side effects. Opportunity to ask questions provided and answered.
[2020-09-29 13:38] VITALS: BP 97/63
== END 2020-09-29 13:37 | disposition home or self-care (01) ==
LOC: MED 11:33
DX: K12.0 Recurrent oral aphthae (principal); K11.20 Sialoadenitis, unspecified; Z79.899 Other long term (current) drug therapy
CPT/HCPCS: 99283

== ENCOUNTER 2021-09-24 12:09 | Inpatient (IN) | payer MEDICAID ==
[~2021-09-24] VITALS: Ht 154.9 cm; Wt 40.8 kg
[~2021-09-24 12:09] MED LIST changes: +AMOX-1230 PO; +CHLO473S62 PO; +PRED20TA5 PO
[2021-09-24 12:41] VITALS: BP 112/79
[2021-09-24 13:26] LABS: BASOPHILS # (AUTO) 0.1 K/uL (0.00-0.22); EOSINOPHILS # (AUTO) 0.1 K/uL (0-0.4); EOSINOPHILS % (AUTO) 0.8 % (0.0-4.0); HEMATOCRIT 27.6 % (36-48); HEMOGLOBIN 7.5 g/dL (12.0-16.0); LYMPHOCYTES % (AUTO) 43.7 % (20.5-51.1); MEAN CORPUSCULAR HEMOGLOBIN 16 pg (27-31); MEAN CORPUSCULAR HGB CONC 27 g/dL (33-37); MEAN CORPUSCULAR VOLUME 57.7 fL (80-94); MONOCYTES # (AUTO) 0.4 K/uL (0.8-1.0); MONOCYTES % (AUTO) 6.4 % (1.7-9.3); NEUTROPHILS # (AUTO) 3.4 K/uL (1.8-7.7); NEUTROPHILS % (AUTO) 48.1 % (42.2-75.2); PLATELET COUNT (AUTO) 530 K/uL (140-450); RED BLOOD CELL COUNT(AUTO) 4.79 MIL/uL (4.20-5.40); RED CELL DISTRIBUTION WIDTH 25.6 % (11.6-13.7)
[2021-09-24 13:53] LABS: PROTHROMBIN TIME 9.9 secs (10.8-13.4)
[2021-09-24 14:07] LABS: ALBUMIN 3.8 g/dL (3.4-5.0); ANION GAP 10.9 (8-16); CREATININE 0.3 mg/dL (0.6-1.3); POTASSIUM 3.9 mmol/L (3.5-5.1)
[2021-09-24] MEDS ORDERED: SODIUM PHOS / POTASSIUM PHOS 1 PKT PDR PO PRN (15:50)
[2021-09-24] MEDS ORDERED: MORPHINE SULFATE 2 MG/ML SYR IVP PRN (15:50)
[2021-09-24] MEDS ORDERED: ONDANSETRON 4 MG/2 ML VIAL IVP PRN (15:50)
[2021-09-24] MEDS ORDERED: POTASSIUM CHLORIDE 10 MEQ TABER PO PRN (15:50)
[2021-09-24] MEDS ORDERED: LORazepam 2 MG/ML VIAL IM/IVP PRN (15:50)
[2021-09-24] MEDS ORDERED: HYDROcodone/APAP 5/325 MG 1 TAB TAB PO PRN (15:50)
[2021-09-24] MEDS ORDERED: MAG SULF 2000 MG/WATER PREMIX 50 ML IV PRN (15:50)
[2021-09-24] MEDS ORDERED: DOCUSATE SODIUM 100 MG GELCAP PO PRN (15:50)
[2021-09-24 16:34] LABS: PROTHROMBIN TIME 10.2 secs (10.8-13.4)
[2021-09-24 16:41] LABS: PHOSPHORUS 3.9 mg/dL (2.5-4.9); THYROID STIMULATING HORMONE 0.09 uIU/mL (0.34-3.74)
[2021-09-24 17:15] VITALS: BP 124/74
[2021-09-24] MEDS: NACL 0.9% 1,000 ML IV SCH (17:30)
[2021-09-24 17:50] LABS: CHOL/HDL RATIO 2.4 (1-4.5); FREE T4 (FREE THYROXINE) 0.83 ng/dL (0.76-1.46)
[2021-09-24 20:00] VITALS: BP 125/83
[2021-09-25] VITALS: BP 106/70
[2021-09-25] MEDS: ZOLPIDEM 5 MG TAB PO PRN ×2 (01:26→21:47)
[2021-09-25] MEDS ORDERED: CRUSHER, PILL MC ONE (01:27)
[2021-09-25 04:00] VITALS: BP 104/70
[2021-09-25 06:41] LABS: ALBUMIN 3.4 g/dL (3.4-5.0); ANION GAP 10.4 (8-16); CARBON DIOXIDE 30.2 mmol/L (21-32); MAGNESIUM 2.4 mg/dL (1.8-2.4); POTASSIUM 3.6 mmol/L (3.5-5.1); TOTAL BILIRUBIN 0.8 mg/dL (0.0-1.0)
[2021-09-25 06:45] LABS: BASOPHILS # (AUTO) 0.1 K/uL (0.00-0.22); BASOPHILS % (AUTO) 0.8 % (0.0-2.0); EOSINOPHILS # (AUTO) 0.1 K/uL (0-0.4); EOSINOPHILS % (AUTO) 0.7 % (0.0-4.0); HEMATOCRIT 25.6 % (36-48); LYMPHOCYTES # (AUTO) 3.4 K/uL (2.5-16.5); LYMPHOCYTES % (AUTO) 34.5 % (20.5-51.1); MEAN CORPUSCULAR HEMOGLOBIN 16 pg (27-31); MEAN CORPUSCULAR HGB CONC 27 g/dL (33-37); MEAN CORPUSCULAR VOLUME 58.6 fL (80-94); MONOCYTES # (AUTO) 0.6 K/uL (0.8-1.0); MONOCYTES % (AUTO) 6.6 % (1.7-9.3); NEUTROPHILS # (AUTO) 5.6 K/uL (1.8-7.7); NEUTROPHILS % (AUTO) 57.4 % (42.2-75.2); PLATELET COUNT (AUTO) 554 K/uL (140-450); RED BLOOD CELL COUNT(AUTO) 4.37 MIL/uL (4.20-5.40); RED CELL DISTRIBUTION WIDTH 25.6 % (11.6-13.7); WHITE BLOOD COUNT (AUTO) 9.8 K/uL (4.8-10.8)
[2021-09-25 06:47] LABS: CREATININE 0.1 mg/dL (0.6-1.3)
[2021-09-25 08:00] VITALS: BP 96/66
[2021-09-25] MEDS ORDERED: RILU50TA PO (10:05)
[2021-09-25] MEDS ORDERED: DEXT1CAP3 PO (10:05)
[2021-09-25] MEDS ORDERED: PRED1TAB2 PO (10:05)
[2021-09-25] MEDS: NACL 0.9% 1,000 ML IV SCH (11:55)
[2021-09-25 12:00] VITALS: BP 102/66
[2021-09-25 16:00] VITALS: BP 111/71
[2021-09-25 20:00] VITALS: BP 124/77
[2021-09-25] MEDS: NUEDEXTA PO SCH (20:43)
[2021-09-25] MEDS: RILUZOLE 50MG TABLET PO SCH (20:44)
[2021-09-25] MEDS ORDERED: RILUZOLE PO SCH (21:00)
[2021-09-26] VITALS (34 sets, daily range): BP systolic 78–161; BP diastolic 31–112
[2021-09-26] MEDS: ALBUTEROL SULFATE/IPRATROPIU 3 ML SOL IH SCH ×4 (00:40→19:26)
[2021-09-26 07:48] LABS: ALBUMIN 3.3 g/dL (3.4-5.0); CARBON DIOXIDE 30.1 mmol/L (21-32); CREATININE 0.1 mg/dL (0.6-1.3); MAGNESIUM 2.1 mg/dL (1.8-2.4); POTASSIUM 3.1 mmol/L (3.5-5.1); TOTAL BILIRUBIN 0.8 mg/dL (0.0-1.0)
[2021-09-26 07:54] LABS: HEMATOCRIT 23.8 % (36-48); MEAN CORPUSCULAR HEMOGLOBIN 16 pg (27-31); MEAN CORPUSCULAR HGB CONC 28 g/dL (33-37); MEAN CORPUSCULAR VOLUME 58.3 fL (80-94); PLATELET COUNT (AUTO) 537 K/uL (140-450); RED BLOOD CELL COUNT(AUTO) 4.08 MIL/uL (4.20-5.40); RED CELL DISTRIBUTION WIDTH 25.6 % (11.6-13.7); WHITE BLOOD COUNT (AUTO) 7.5 K/uL (4.8-10.8)
[2021-09-26] MEDS: NACL 0.9% 1,000 ML IV SCH ×3 (08:07→19:20)
[2021-09-26 08:53] LABS: APPEARANCE,URINE CLEAR (CLEAR); BILIRUBIN,URINE NEGATIVE (NEGATIVE); BLOOD, URINE NEGATIVE (NEGATIVE); COLOR,URINE YELLOW (YELLOW); LEUKOCYTE ESTERASE ,URINE NEGATIVE (NEGATIVE); NITRITE, URINE NEGATIVE (NEGATIVE); PH,URINE 6.5 (5.0-9.0); UGLUCOSE NEGATIVE (NEGATIVE)
[2021-09-26] MEDS: RILUZOLE 50MG TABLET PO SCH ×2 (09:00→21:08)
[2021-09-26] MEDS: NUEDEXTA PO SCH ×2 (09:00→21:08)
[2021-09-26 09:04] LABS: RBC,URINE 0-5 /HPF (0-5); WBC,URINE 0-5 /HPF (0-5)
[2021-09-26 09:11] LABS: HEMOGLOBIN 6.6 g/dL (12.0-16.0)
[2021-09-26 09:12] LABS: EOSINOPHILS % (MANUAL) 1 % (0-4); LYMPHOCYTES % (MANUAL) 24 % (20-46); MONOCYTES % (MANUAL) 3 % (5-12)
[2021-09-26 09:19] LABS: BARBITURATE, URINE NEGATIVE ng/ml (NEG <=200); BENZODIAZEPINE, URINE NEGATIVE ng/mL (NEG <=200); CANNABINOID, URINE NEGATIVE ng/mL (NEG <=50); COCAINE, URINE NEGATIVE ng/mL (NEG <=300); OPIATE, URINE NEGATIVE ng/mL (NEG <=2000); PHENCYCLIDINE SCREEN,URINE NEGATIVE ng/mL (NEG <=25)
[2021-09-26] MEDS ORDERED: NACL 0.9% 1,000 ML IV ONE (09:20)
[2021-09-26] MEDS ORDERED: PROPOFOL 1000 MG/100 ML PREMIX 100 ML IV ONE (09:23)
[2021-09-26] MEDS ORDERED: NOREPINEPHRINE 4 MG/4 ML VIAL IV ONE ×2 (10:14→18:04)
[2021-09-26 11:41] LABS: BASOPHILS % (AUTO) 0.2 % (0.0-2.0); EOSINOPHILS % (AUTO) 0.1 % (0.0-4.0); HEMATOCRIT 23.2 % (36-48); LYMPHOCYTES # (AUTO) 1.1 K/uL (2.5-16.5); LYMPHOCYTES % (AUTO) 6.6 % (20.5-51.1); MEAN CORPUSCULAR HEMOGLOBIN 16 pg (27-31); MEAN CORPUSCULAR HGB CONC 26 g/dL (33-37); MONOCYTES # (AUTO) 0.9 K/uL (0.8-1.0); MONOCYTES % (AUTO) 5.5 % (1.7-9.3); NEUTROPHILS % (AUTO) 87.6 % (42.2-75.2); PLATELET COUNT (AUTO) 444 K/uL (140-450); RED BLOOD CELL COUNT(AUTO) 3.87 MIL/uL (4.20-5.40); RED CELL DISTRIBUTION WIDTH 25.7 % (11.6-13.7)
[2021-09-26 12:13] LABS: HEMOGLOBIN 6.1 g/dL (12.0-16.0)
[2021-09-26 12:18] LABS: ANION GAP 15.4 (8-16); ASPARTATE AMINOTRANSFERASE 170 U/L (15-37); CARBON DIOXIDE 22.7 mmol/L (21-32); CHLORIDE 111 mmol/L (98-107); CREATININE 0.3 mg/dL (0.6-1.3); GFR ARICAN-AMERICAN 307 mL/min (>90); GLUCOSE 117 mg/dL (74-106); POTASSIUM 3.1 mmol/L (3.5-5.1); SODIUM SERUM 146 mmol/L (136-145); TOTAL BILIRUBIN 0.8 mg/dL (0.0-1.0); UREA NITROGEN, BLOOD 10 mg/dL (7-18)
[2021-09-26] MEDS: PANTOPRAZOLE 40 MG INJ VIAL IVP SCH ×2 (15:00→21:07)
[2021-09-26] MEDS: PIPERACILLIN/TAZOBACTAM 3.375 GM in DEXTROSE 5% 50 ML IV SCH (18:00)
[2021-09-26] MEDS: NOREPINEPHRINE 4 MG in DEXTROSE 5% 250 ML IV PRN (18:34)
[2021-09-26] MEDS: PROPOFOL 1000 MG/100 ML PREMIX 100 ML IV PRN (18:37)
[2021-09-27] VITALS (30 sets, daily range): BP systolic 91–154; BP diastolic 44–95
[2021-09-27] MEDS: POTASSIUM CHLORIDE 20% 40 MEQ/15 ML UDC GT PRN (00:01)
[2021-09-27] MEDS: ALBUTEROL SULFATE/IPRATROPIU 3 ML SOL IH SCH ×4 (01:54→22:09)
[2021-09-27 03:36] LABS: HEMOGLOBIN 9.1 g/dL (12.0-16.0)
[2021-09-27 04:05] LABS: ALBUMIN 2.8 g/dL (3.4-5.0); ANION GAP 12.5 (8-16); CARBON DIOXIDE 22.3 mmol/L (21-32); CREATININE 0.1 mg/dL (0.6-1.3); MAGNESIUM 1.6 mg/dL (1.8-2.4); TOTAL BILIRUBIN 3.9 mg/dL (0.0-1.0)
[2021-09-27 04:13] LABS: POTASSIUM 2.8 mmol/L (3.5-5.1)
[2021-09-27 04:14] LABS: HEMATOCRIT 29.7 % (36-48); MEAN CORPUSCULAR HEMOGLOBIN 20 pg (27-31); MEAN CORPUSCULAR HGB CONC 31 g/dL (33-37); MEAN CORPUSCULAR VOLUME 66.5 fL (80-94); PLATELET COUNT (AUTO) 428 K/uL (140-450); RED BLOOD CELL COUNT(AUTO) 4.47 MIL/uL (4.20-5.40); RED CELL DISTRIBUTION WIDTH 34.9 % (11.6-13.7); WHITE BLOOD COUNT (AUTO) 16.8 K/uL (4.8-10.8)
[2021-09-27 04:32] LABS: LYMPHOCYTES % (MANUAL) 17 % (20-46); MONOCYTES % (MANUAL) 7 % (5-12)
[2021-09-27] MEDS: PROPOFOL 1000 MG/100 ML PREMIX 100 ML IV PRN (04:52)
[2021-09-27] MEDS: KCL 20 MEQ/WATER INJ PREMIX 200 ML IV PRN (05:19)
[2021-09-27] MEDS: NACL 0.9% 1,000 ML IV SCH ×2 (05:20→15:20)
[2021-09-27] MEDS: PIPERACILLIN/TAZOBACTAM 3.375 GM in DEXTROSE 5% 50 ML IV SCH ×5 (05:42→18:45)
[2021-09-27] MEDS ORDERED: NOREPINEPHRINE 4 MG/4 ML VIAL IV ONE (05:47)
[2021-09-27] MEDS: NOREPINEPHRINE 4 MG in DEXTROSE 5% 250 ML IV PRN (05:50)
[2021-09-27] MEDS ORDERED: KCL 20 MEQ/WATER INJ PREMIX 200 ML IV SCH (06:00)
[2021-09-27 06:36] LABS: FERRITIN 4 ng/mL (15-150)
[2021-09-27 08:22] LABS: TRANSFERRIN 369 mg/dL (192-364)
[2021-09-27] MEDS: PANTOPRAZOLE 40 MG INJ VIAL IVP SCH ×2 (09:13→21:35)
[2021-09-27] MEDS: NUEDEXTA PO SCH ×2 (09:14→21:00)
[2021-09-27] MEDS: RILUZOLE 50MG TABLET PO SCH ×2 (09:16→21:00)
[2021-09-27] MEDS ORDERED: KCL 20 MEQ/WATER INJ PREMIX 200 ML IV ONE (14:00)
[2021-09-27] MEDS ORDERED: VANCOMYCIN PER PHARMACY MC PRN (19:15)
[2021-09-27] MEDS: VANCOMYCIN HCL 750 MG in DEXTROSE 5% 250 ML IV SCH (21:00)
[2021-09-27] MEDS ORDERED: SODIUM FERRIC GLUCONATE 12.5 MG/ML AMP IV ONE (22:03)
[2021-09-27] MEDS ORDERED: VANCOMYCIN 500 MG VIAL ONE (22:04)
[2021-09-27] MEDS: SODIUM FERRIC GLUCONATE 125 MG in NACL 0.9% 100 ML IV SCH (22:14)
[2021-09-28] VITALS (32 sets, daily range): BP systolic 88–132; BP diastolic 44–80
[2021-09-28] MEDS: ALBUTEROL SULFATE/IPRATROPIU 3 ML SOL IH SCH ×3 (01:00→13:51)
[2021-09-28] MEDS: PROPOFOL 1000 MG/100 ML PREMIX 100 ML IV PRN ×2 (04:32→21:41)
[2021-09-28] MEDS: NACL 0.9% 1,000 ML IV SCH ×3 (04:33→21:20)
[2021-09-28] MEDS ORDERED: VANCOMYCIN 1,000 MG VIAL ONE (04:44)
[2021-09-28] MEDS: VANCOMYCIN HCL 750 MG in DEXTROSE 5% 250 ML IV SCH ×2 (05:12→13:52)
[2021-09-28] MEDS: PIPERACILLIN/TAZOBACTAM 3.375 GM in DEXTROSE 5% 50 ML IV SCH ×6 (05:47→23:30)
[2021-09-28 05:49] LABS: BASOPHILS # (AUTO) 0.1 K/uL (0.00-0.22); BASOPHILS % (AUTO) 0.3 % (0.0-2.0); EOSINOPHILS % (AUTO) 0.2 % (0.0-4.0); HEMOGLOBIN 8.4 g/dL (12.0-16.0); LYMPHOCYTES # (AUTO) 1.9 K/uL (2.5-16.5); LYMPHOCYTES % (AUTO) 12.7 % (20.5-51.1); MEAN CORPUSCULAR HEMOGLOBIN 20 pg (27-31); MEAN CORPUSCULAR HGB CONC 30 g/dL (33-37); MEAN CORPUSCULAR VOLUME 67.6 fL (80-94); MONOCYTES # (AUTO) 0.9 K/uL (0.8-1.0); NEUTROPHILS # (AUTO) 12.2 K/uL (1.8-7.7); NEUTROPHILS % (AUTO) 80.8 % (42.2-75.2); PLATELET COUNT (AUTO) 364 K/uL (140-450); RED BLOOD CELL COUNT(AUTO) 4.15 MIL/uL (4.20-5.40); RED CELL DISTRIBUTION WIDTH 35.2 % (11.6-13.7)
[2021-09-28 06:05] LABS: ALBUMIN 2.4 g/dL (3.4-5.0); ANION GAP 12.8 (8-16); TOTAL BILIRUBIN 2.1 mg/dL (0.0-1.0)
[2021-09-28 06:12] LABS: POTASSIUM 2.8 mmol/L (3.5-5.1)
[2021-09-28 06:13] LABS: WHITE BLOOD COUNT (AUTO) 16.1 K/uL (4.8-10.8)
[2021-09-28] MEDS: KCL 20 MEQ/WATER INJ PREMIX 200 ML IV PRN (06:33)
[2021-09-28] MEDS: PANTOPRAZOLE 40 MG INJ VIAL IVP SCH ×2 (09:27→20:46)
[2021-09-28] MEDS: NUEDEXTA PO SCH ×2 (09:28→20:46)
[2021-09-28] MEDS: RILUZOLE 50MG TABLET PO SCH ×2 (09:31→20:47)
[2021-09-28] MEDS: SODIUM FERRIC GLUCONATE 125 MG in NACL 0.9% 100 ML IV SCH (19:15)
[2021-09-29] VITALS (32 sets, daily range): BP systolic 82–127; BP diastolic 41–96
[2021-09-29] MEDS: ALBUTEROL SULFATE/IPRATROPIU 3 ML SOL IH SCH ×5 (01:54→19:00)
[2021-09-29] MEDS: PIPERACILLIN/TAZOBACTAM 3.375 GM in DEXTROSE 5% 50 ML IV SCH ×3 (05:47→17:27)
[2021-09-29 06:04] LABS: ALBUMIN 2.3 g/dL (3.4-5.0); ANION GAP 14.3 (8-16); CARBON DIOXIDE 19.1 mmol/L (21-32); CREATININE 0.1 mg/dL (0.6-1.3); MAGNESIUM 1.9 mg/dL (1.8-2.4); TOTAL BILIRUBIN 1.3 mg/dL (0.0-1.0)
[2021-09-29 06:27] LABS: BASOPHILS # (AUTO) 0.1 K/uL (0.00-0.22); BASOPHILS % (AUTO) 0.4 % (0.0-2.0); EOSINOPHILS # (AUTO) 0.2 K/uL (0-0.4); EOSINOPHILS % (AUTO) 1.4 % (0.0-4.0); HEMATOCRIT 28.4 % (36-48); HEMOGLOBIN 8.5 g/dL (12.0-16.0); LYMPHOCYTES # (AUTO) 1.5 K/uL (2.5-16.5); LYMPHOCYTES % (AUTO) 12.3 % (20.5-51.1); MEAN CORPUSCULAR HEMOGLOBIN 20 pg (27-31); MEAN CORPUSCULAR HGB CONC 30 g/dL (33-37); MEAN CORPUSCULAR VOLUME 67.9 fL (80-94); MONOCYTES # (AUTO) 0.9 K/uL (0.8-1.0); MONOCYTES % (AUTO) 7.1 % (1.7-9.3); NEUTROPHILS # (AUTO) 9.8 K/uL (1.8-7.7); NEUTROPHILS % (AUTO) 78.8 % (42.2-75.2); PLATELET COUNT (AUTO) 379 K/uL (140-450); RED BLOOD CELL COUNT(AUTO) 4.18 MIL/uL (4.20-5.40); RED CELL DISTRIBUTION WIDTH 35.5 % (11.6-13.7); WHITE BLOOD COUNT (AUTO) 12.4 K/uL (4.8-10.8)
[2021-09-29 06:32] LABS: POTASSIUM 2.4 mmol/L (3.5-5.1)
[2021-09-29] MEDS: KCL 20 MEQ/WATER INJ PREMIX 200 ML IV PRN (09:00)
[2021-09-29] MEDS: PANTOPRAZOLE 40 MG INJ VIAL IVP SCH ×2 (09:05→23:44)
[2021-09-29] MEDS: NACL 0.9% 1,000 ML IV SCH ×2 (09:05→22:45)
[2021-09-29] MEDS: RILUZOLE 50MG TABLET PO SCH (09:06)
[2021-09-29] MEDS: NUEDEXTA PO SCH (09:06)
[2021-09-29] MEDS: POTASSIUM CHLORIDE 20% 40 MEQ/15 ML UDC GT PRN (09:07)
[2021-09-29] MEDS: PROPOFOL 1000 MG/100 ML PREMIX 100 ML IV PRN ×2 (09:09→18:30)
[2021-09-29] MEDS ORDERED: DOCUSATE 100 MG/10 ML UDC GT PRN (10:00)
[2021-09-29] MEDS ORDERED: POTASSIUM CHLORIDE 20% 40 MEQ/15 ML UDC GT ONE (10:00)
[2021-09-29] MEDS: NOREPINEPHRINE 4 MG in DEXTROSE 5% 250 ML IV PRN (16:21)
[2021-09-29] MEDS: SODIUM FERRIC GLUCONATE 125 MG in NACL 0.9% 100 ML IV SCH (22:45)
[2021-09-30] VITALS (32 sets, daily range): BP systolic 86–131; BP diastolic 54–93
[2021-09-30] MEDS: PIPERACILLIN/TAZOBACTAM 3.375 GM in DEXTROSE 5% 50 ML IV SCH ×5 (00:12→23:46)
[2021-09-30] MEDS: ALBUTEROL SULFATE/IPRATROPIU 3 ML SOL IH SCH ×4 (01:00→19:35)
[2021-09-30] MEDS: PROPOFOL 1000 MG/100 ML PREMIX 100 ML IV PRN ×3 (02:46→22:11)
[2021-09-30] MEDS ORDERED: KCL 20 MEQ/WATER INJ PREMIX 200 ML IV ONE (07:40)
[2021-09-30 08:05] LABS: BASOPHILS # (AUTO) 0.1 K/uL (0.00-0.22); BASOPHILS % (AUTO) 0.7 % (0.0-2.0); EOSINOPHILS # (AUTO) 0.2 K/uL (0-0.4); HEMATOCRIT 30.4 % (36-48); HEMOGLOBIN 9.2 g/dL (12.0-16.0); LYMPHOCYTES % (AUTO) 18.9 % (20.5-51.1); MEAN CORPUSCULAR HEMOGLOBIN 21 pg (27-31); MEAN CORPUSCULAR HGB CONC 30 g/dL (33-37); MEAN CORPUSCULAR VOLUME 67.9 fL (80-94); MONOCYTES % (AUTO) 9.2 % (1.7-9.3); NEUTROPHILS # (AUTO) 7.2 K/uL (1.8-7.7); NEUTROPHILS % (AUTO) 69.2 % (42.2-75.2); PLATELET COUNT (AUTO) 424 K/uL (140-450); RED BLOOD CELL COUNT(AUTO) 4.48 MIL/uL (4.20-5.40); RED CELL DISTRIBUTION WIDTH 36.1 % (11.6-13.7); WHITE BLOOD COUNT (AUTO) 10.5 K/uL (4.8-10.8)
[2021-09-30 08:26] LABS: ALBUMIN 2.3 g/dL (3.4-5.0); ANION GAP 12.2 (8-16); CARBON DIOXIDE 22.8 mmol/L (21-32); CREATININE 0.2 mg/dL (0.6-1.3); TOTAL BILIRUBIN 0.7 mg/dL (0.0-1.0)
[2021-09-30] MEDS: PANTOPRAZOLE 40 MG INJ VIAL IVP SCH ×2 (09:05→20:27)
[2021-09-30] MEDS: POTASSIUM CHLORIDE 20% 40 MEQ/15 ML UDC GT PRN (09:09)
[2021-09-30] MEDS: NUEDEXTA PO SCH ×2 (09:12→20:32)
[2021-09-30] MEDS: NACL 0.9% 1,000 ML IV SCH ×2 (09:24→15:42)
[2021-09-30] MEDS: NOREPINEPHRINE 4 MG in DEXTROSE 5% 250 ML IV PRN (11:26)
[2021-09-30] MEDS: SODIUM FERRIC GLUCONATE 125 MG in NACL 0.9% 100 ML IV SCH (19:30)
[2021-09-30] MEDS ORDERED: SODIUM FERRIC GLUCONATE 12.5 MG/ML AMP IV ONE (19:34)
[2021-09-30] MEDS: RILUZOLE 50MG TABLET PO SCH (20:31)
[2021-10-01] VITALS (32 sets, daily range): BP systolic 91–135; BP diastolic 52–95
[2021-10-01] MEDS: RILUZOLE 50MG TABLET PO SCH ×2 (00:51→20:27)
[2021-10-01] MEDS: ALBUTEROL SULFATE/IPRATROPIU 3 ML SOL IH SCH ×4 (01:18→19:40)
[2021-10-01] MEDS: NACL 0.9% 1,000 ML IV SCH ×2 (05:23→13:58)
[2021-10-01 05:53] LABS: BASOPHILS # (AUTO) 0.1 K/uL (0.00-0.22); BASOPHILS % (AUTO) 0.6 % (0.0-2.0); EOSINOPHILS # (AUTO) 0.1 K/uL (0-0.4); EOSINOPHILS % (AUTO) 0.8 % (0.0-4.0); HEMATOCRIT 29.7 % (36-48); HEMOGLOBIN 9.3 g/dL (12.0-16.0); LYMPHOCYTES # (AUTO) 2.6 K/uL (2.5-16.5); LYMPHOCYTES % (AUTO) 24.1 % (20.5-51.1); MEAN CORPUSCULAR HEMOGLOBIN 21 pg (27-31); MEAN CORPUSCULAR HGB CONC 31 g/dL (33-37); MEAN CORPUSCULAR VOLUME 68.2 fL (80-94); MONOCYTES # (AUTO) 0.7 K/uL (0.8-1.0); MONOCYTES % (AUTO) 6.1 % (1.7-9.3); NEUTROPHILS # (AUTO) 7.5 K/uL (1.8-7.7); NEUTROPHILS % (AUTO) 68.4 % (42.2-75.2); PLATELET COUNT (AUTO) 385 K/uL (140-450); RED BLOOD CELL COUNT(AUTO) 4.35 MIL/uL (4.20-5.40); RED CELL DISTRIBUTION WIDTH 37.7 % (11.6-13.7); WHITE BLOOD COUNT (AUTO) 10.9 K/uL (4.8-10.8)
[2021-10-01] MEDS: PIPERACILLIN/TAZOBACTAM 3.375 GM in DEXTROSE 5% 50 ML IV SCH ×3 (06:00→18:36)
[2021-10-01 06:06] LABS: ALBUMIN 2.4 g/dL (3.4-5.0); ANION GAP 8.8 (8-16); CARBON DIOXIDE 26.3 mmol/L (21-32); CREATININE 0.1 mg/dL (0.6-1.3); POTASSIUM 3.1 mmol/L (3.5-5.1); TOTAL BILIRUBIN 0.6 mg/dL (0.0-1.0)
[2021-10-01] MEDS: POTASSIUM CHLORIDE 20% 40 MEQ/15 ML UDC GT PRN (07:11)
[2021-10-01] MEDS: PANTOPRAZOLE 40 MG INJ VIAL IVP SCH ×2 (09:20→20:24)
[2021-10-01] MEDS: NUEDEXTA PO SCH ×2 (09:21→20:28)
[2021-10-01] MEDS ORDERED: POTASSIUM CHLORIDE 20% 40 MEQ/15 ML UDC GT SCH (14:00)
[2021-10-01] MEDS: SODIUM FERRIC GLUCONATE 125 MG in NACL 0.9% 100 ML IV SCH (19:27)
[2021-10-01] MEDS: ACETAMINOPHEN 325 MG TAB PO PRN (20:00)
[2021-10-02] VITALS (25 sets, daily range): BP systolic 97–133; BP diastolic 56–92
[2021-10-02] MEDS: PIPERACILLIN/TAZOBACTAM 3.375 GM in DEXTROSE 5% 50 ML IV SCH ×5 (00:07→23:55)
[2021-10-02] MEDS: ALBUTEROL SULFATE/IPRATROPIU 3 ML SOL IH SCH ×4 (01:54→19:17)
[2021-10-02] MEDS: NACL 0.9% 1,000 ML IV SCH ×3 (02:01→16:00)
[2021-10-02 06:11] LABS: BASOPHILS # (AUTO) 0.1 K/uL (0.00-0.22); BASOPHILS % (AUTO) 0.5 % (0.0-2.0); EOSINOPHILS # (AUTO) 0.2 K/uL (0-0.4); EOSINOPHILS % (AUTO) 1.4 % (0.0-4.0); HEMATOCRIT 29.5 % (36-48); HEMOGLOBIN 8.7 g/dL (12.0-16.0); LYMPHOCYTES # (AUTO) 3.1 K/uL (2.5-16.5); LYMPHOCYTES % (AUTO) 22.9 % (20.5-51.1); MEAN CORPUSCULAR HEMOGLOBIN 21 pg (27-31); MEAN CORPUSCULAR HGB CONC 30 g/dL (33-37); MEAN CORPUSCULAR VOLUME 70.5 fL (80-94); MONOCYTES # (AUTO) 0.6 K/uL (0.8-1.0); MONOCYTES % (AUTO) 4.3 % (1.7-9.3); NEUTROPHILS # (AUTO) 9.5 K/uL (1.8-7.7); NEUTROPHILS % (AUTO) 70.9 % (42.2-75.2); PLATELET COUNT (AUTO) 334 K/uL (140-450); RED BLOOD CELL COUNT(AUTO) 4.19 MIL/uL (4.20-5.40); RED CELL DISTRIBUTION WIDTH 38.4 % (11.6-13.7); WHITE BLOOD COUNT (AUTO) 13.4 K/uL (4.8-10.8)
[2021-10-02 07:32] LABS: ALBUMIN 2.2 g/dL (3.4-5.0); ANION GAP 10.7 (8-16); CARBON DIOXIDE 25.7 mmol/L (21-32); CREATININE 0.1 mg/dL (0.6-1.3); POTASSIUM 3.4 mmol/L (3.5-5.1); TOTAL BILIRUBIN 0.6 mg/dL (0.0-1.0)
[2021-10-02] MEDS: PANTOPRAZOLE 40 MG INJ VIAL IVP SCH ×2 (08:30→20:15)
[2021-10-02] MEDS: NUEDEXTA PO SCH ×2 (08:31→20:17)
[2021-10-02] MEDS: RILUZOLE 50MG TABLET PO SCH ×2 (08:31→20:16)
[2021-10-02] MEDS: KCL 20 MEQ/WATER INJ PREMIX 200 ML IV PRN (09:35)
[2021-10-02] MEDS: SODIUM FERRIC GLUCONATE 125 MG in NACL 0.9% 100 ML IV SCH (19:33)
[2021-10-03] VITALS (23 sets, daily range): BP systolic 91–118; BP diastolic 52–77
[2021-10-03] MEDS: ALBUTEROL SULFATE/IPRATROPIU 3 ML SOL IH SCH ×4 (00:57→20:39)
[2021-10-03] MEDS: NACL 0.9% 1,000 ML IV SCH ×3 (01:20→21:20)
[2021-10-03] MEDS: PIPERACILLIN/TAZOBACTAM 3.375 GM in DEXTROSE 5% 50 ML IV SCH ×4 (06:02→23:53)
[2021-10-03 06:24] LABS: BASOPHILS # (AUTO) 0.1 K/uL (0.00-0.22); BASOPHILS % (AUTO) 0.7 % (0.0-2.0); EOSINOPHILS # (AUTO) 0.2 K/uL (0-0.4); EOSINOPHILS % (AUTO) 1.5 % (0.0-4.0); HEMATOCRIT 28.8 % (36-48); HEMOGLOBIN 8.8 g/dL (12.0-16.0); LYMPHOCYTES # (AUTO) 2.3 K/uL (2.5-16.5); LYMPHOCYTES % (AUTO) 15.6 % (20.5-51.1); MEAN CORPUSCULAR HEMOGLOBIN 22 pg (27-31); MEAN CORPUSCULAR HGB CONC 31 g/dL (33-37); MEAN CORPUSCULAR VOLUME 70.8 fL (80-94); MONOCYTES # (AUTO) 0.7 K/uL (0.8-1.0); NEUTROPHILS # (AUTO) 11.3 K/uL (1.8-7.7); NEUTROPHILS % (AUTO) 77.2 % (42.2-75.2); PLATELET COUNT (AUTO) 361 K/uL (140-450); RED BLOOD CELL COUNT(AUTO) 4.07 MIL/uL (4.20-5.40); RED CELL DISTRIBUTION WIDTH 39.5 % (11.6-13.7); WHITE BLOOD COUNT (AUTO) 14.7 K/uL (4.8-10.8)
[2021-10-03 06:54] LABS: ALBUMIN 2.1 g/dL (3.4-5.0); ANION GAP 11.1 (8-16); CARBON DIOXIDE 24.2 mmol/L (21-32); CREATININE 0.1 mg/dL (0.6-1.3); POTASSIUM 3.3 mmol/L (3.5-5.1); TOTAL BILIRUBIN 0.3 mg/dL (0.0-1.0)
[2021-10-03] MEDS: PANTOPRAZOLE 40 MG INJ VIAL IVP SCH ×2 (09:13→21:11)
[2021-10-03] MEDS: NUEDEXTA PO SCH ×2 (09:15→21:00)
[2021-10-03] MEDS: RILUZOLE 50MG TABLET PO SCH ×2 (09:15→21:30)
[2021-10-03] MEDS: POTASSIUM CHLORIDE 20% 40 MEQ/15 ML UDC GT PRN (09:33)
[2021-10-03] MEDS: SODIUM FERRIC GLUCONATE 125 MG in NACL 0.9% 100 ML IV SCH (19:30)
[2021-10-04] VITALS (27 sets, daily range): BP systolic 11–122; BP diastolic 61–73
[2021-10-04] MEDS: PIPERACILLIN/TAZOBACTAM 3.375 GM in DEXTROSE 5% 50 ML IV SCH ×3 (05:52→18:25)
[2021-10-04] MEDS: ALBUTEROL SULFATE/IPRATROPIU 3 ML SOL IH SCH ×3 (08:00→20:01)
[2021-10-04] MEDS: PANTOPRAZOLE 40 MG INJ VIAL IVP SCH ×2 (08:12→20:46)
[2021-10-04] MEDS: RILUZOLE 50MG TABLET PO SCH ×2 (08:15→20:47)
[2021-10-04] MEDS: NUEDEXTA PO SCH ×2 (08:15→20:47)
[2021-10-04] MEDS: POTASSIUM CHLORIDE 20% 40 MEQ/15 ML UDC GT PRN (08:24)
[2021-10-04] MEDS: NACL 0.9% 1,000 ML IV SCH ×2 (09:27→17:00)
[2021-10-04] MEDS: SODIUM FERRIC GLUCONATE 125 MG in NACL 0.9% 100 ML IV SCH (20:00)
[2021-10-04] MEDS ORDERED: POTASSIUM CHLORIDE 20% 40 MEQ/15 ML UDC GT SCH (21:00)
[2021-10-05] VITALS (22 sets, daily range): BP systolic 95–126; BP diastolic 56–80
[2021-10-05] MEDS: PIPERACILLIN/TAZOBACTAM 3.375 GM in DEXTROSE 5% 50 ML IV SCH ×3 (00:15→17:17)
[2021-10-05] MEDS: NACL 0.9% 1,000 ML IV SCH ×3 (00:16→21:10)
[2021-10-05] MEDS: ALBUTEROL SULFATE/IPRATROPIU 3 ML SOL IH SCH ×4 (01:21→19:20)
[2021-10-05 06:43] LABS: ANION GAP 12.5 (8-16); CARBON DIOXIDE 20.8 mmol/L (21-32); CREATININE 0.2 mg/dL (0.6-1.3); POTASSIUM 3.3 mmol/L (3.5-5.1)
[2021-10-05] MEDS: NUEDEXTA PO SCH ×2 (09:01→20:40)
[2021-10-05] MEDS: PANTOPRAZOLE 40 MG INJ VIAL IVP SCH ×2 (09:01→20:39)
[2021-10-05] MEDS: RILUZOLE 50MG TABLET PO SCH ×2 (09:01→20:40)
[2021-10-05] MEDS: POTASSIUM CHLORIDE 20% 40 MEQ/15 ML UDC GT PRN (09:19)
[2021-10-05 10:25] LABS: BASOPHILS # (AUTO) 0.2 K/uL (0.00-0.22); BASOPHILS % (AUTO) 1.2 % (0.0-2.0); EOSINOPHILS # (AUTO) 0.2 K/uL (0-0.4); EOSINOPHILS % (AUTO) 1.5 % (0.0-4.0); HEMATOCRIT 29.9 % (36-48); LYMPHOCYTES # (AUTO) 2.5 K/uL (2.5-16.5); LYMPHOCYTES % (AUTO) 17.5 % (20.5-51.1); MEAN CORPUSCULAR HEMOGLOBIN 22 pg (27-31); MEAN CORPUSCULAR HGB CONC 30 g/dL (33-37); MEAN CORPUSCULAR VOLUME 73.8 fL (80-94); MONOCYTES # (AUTO) 0.8 K/uL (0.8-1.0); MONOCYTES % (AUTO) 5.9 % (1.7-9.3); NEUTROPHILS # (AUTO) 10.6 K/uL (1.8-7.7); NEUTROPHILS % (AUTO) 73.9 % (42.2-75.2); PLATELET COUNT (AUTO) 329 K/uL (140-450); RED BLOOD CELL COUNT(AUTO) 4.05 MIL/uL (4.20-5.40); RED CELL DISTRIBUTION WIDTH 41.7 % (11.6-13.7); WHITE BLOOD COUNT (AUTO) 14.4 K/uL (4.8-10.8)
[2021-10-05] MEDS: SODIUM FERRIC GLUCONATE 125 MG in NACL 0.9% 100 ML IV SCH (20:10)
[2021-10-06] VITALS (30 sets, daily range): BP systolic 95–170; BP diastolic 59–130
[2021-10-06] MEDS: PIPERACILLIN/TAZOBACTAM 3.375 GM in DEXTROSE 5% 50 ML IV SCH ×5 (00:13→23:28)
[2021-10-06] MEDS: ALBUTEROL SULFATE/IPRATROPIU 3 ML SOL IH SCH ×4 (00:17→19:35)
[2021-10-06 06:19] LABS: BASOPHILS # (AUTO) 0.1 K/uL (0.00-0.22); BASOPHILS % (AUTO) 0.5 % (0.0-2.0); EOSINOPHILS # (AUTO) 0.1 K/uL (0-0.4); EOSINOPHILS % (AUTO) 1.1 % (0.0-4.0); HEMATOCRIT 30.5 % (36-48); HEMOGLOBIN 9.4 g/dL (12.0-16.0); LYMPHOCYTES # (AUTO) 2.2 K/uL (2.5-16.5); LYMPHOCYTES % (AUTO) 17.7 % (20.5-51.1); MEAN CORPUSCULAR HEMOGLOBIN 23 pg (27-31); MEAN CORPUSCULAR HGB CONC 31 g/dL (33-37); MEAN CORPUSCULAR VOLUME 73.6 fL (80-94); MONOCYTES # (AUTO) 0.6 K/uL (0.8-1.0); MONOCYTES % (AUTO) 5.2 % (1.7-9.3); NEUTROPHILS # (AUTO) 9.4 K/uL (1.8-7.7); NEUTROPHILS % (AUTO) 75.5 % (42.2-75.2); PLATELET COUNT (AUTO) 365 K/uL (140-450); RED BLOOD CELL COUNT(AUTO) 4.15 MIL/uL (4.20-5.40); RED CELL DISTRIBUTION WIDTH 42.5 % (11.6-13.7); WHITE BLOOD COUNT (AUTO) 12.5 K/uL (4.8-10.8)
[2021-10-06 06:42] LABS: ANION GAP 13.2 (8-16); CARBON DIOXIDE 19.7 mmol/L (21-32); CREATININE 0.2 mg/dL (0.6-1.3)
[2021-10-06 06:45] LABS: POTASSIUM 2.9 mmol/L (3.5-5.1)
[2021-10-06] MEDS: POTASSIUM CHLORIDE 20% 40 MEQ/15 ML UDC GT PRN (06:56)
[2021-10-06] MEDS ORDERED: LIDOCAINE/EPI 1% 1:100000 20 ML VIAL INJ ONE (08:35)
[2021-10-06] MEDS: RILUZOLE 50MG TABLET PO SCH ×2 (08:39→20:35)
[2021-10-06] MEDS: NUEDEXTA PO SCH ×2 (08:40→20:35)
[2021-10-06] MEDS: NACL 0.9% 1,000 ML IV SCH ×2 (08:46→17:52)
[2021-10-06] MEDS: PANTOPRAZOLE 40 MG INJ VIAL IVP SCH ×2 (08:46→20:21)
[2021-10-06] MEDS ORDERED: fentaNYL citrate 0.05 MG/ML VIAL ONE (12:55)
[2021-10-06] MEDS ORDERED: ROCURONIUM 50 MG/5 ML VIAL IV ONE (13:04)
[2021-10-06] MEDS ORDERED: HYDROmorphone 1 MG/ML AMP IVP PRN (13:55)
[2021-10-06] MEDS: MORPHINE SULFATE 4 MG/ML SYR IV PRN (17:35)
[2021-10-06] MEDS ORDERED: KCL 20 MEQ/WATER INJ PREMIX 200 ML IV ONE (20:00)
[2021-10-07] VITALS (23 sets, daily range): BP systolic 92–134; BP diastolic 59–89
[2021-10-07] MEDS: ALBUTEROL SULFATE/IPRATROPIU 3 ML SOL IH SCH ×4 (01:00→19:31)
[2021-10-07 05:19] LABS: BASOPHILS % (AUTO) 0.3 % (0.0-2.0); EOSINOPHILS # (AUTO) 0.1 K/uL (0-0.4); EOSINOPHILS % (AUTO) 0.9 % (0.0-4.0); HEMATOCRIT 28.9 % (36-48); HEMOGLOBIN 9.1 g/dL (12.0-16.0); LYMPHOCYTES # (AUTO) 1.7 K/uL (2.5-16.5); LYMPHOCYTES % (AUTO) 12.2 % (20.5-51.1); MEAN CORPUSCULAR HEMOGLOBIN 23 pg (27-31); MEAN CORPUSCULAR HGB CONC 31 g/dL (33-37); MEAN CORPUSCULAR VOLUME 74.1 fL (80-94); MONOCYTES # (AUTO) 0.5 K/uL (0.8-1.0); MONOCYTES % (AUTO) 3.8 % (1.7-9.3); NEUTROPHILS # (AUTO) 11.4 K/uL (1.8-7.7); NEUTROPHILS % (AUTO) 82.8 % (42.2-75.2); PLATELET COUNT (AUTO) 324 K/uL (140-450); RED CELL DISTRIBUTION WIDTH 44.8 % (11.6-13.7); WHITE BLOOD COUNT (AUTO) 13.7 K/uL (4.8-10.8)
[2021-10-07] MEDS: NACL 0.9% 1,000 ML IV SCH ×2 (05:34→15:17)
[2021-10-07] MEDS: PIPERACILLIN/TAZOBACTAM 3.375 GM in DEXTROSE 5% 50 ML IV SCH ×3 (05:48→17:10)
[2021-10-07] MEDS: MORPHINE SULFATE 4 MG/ML SYR IV PRN ×3 (05:55→20:25)
[2021-10-07 05:57] LABS: CARBON DIOXIDE 18.5 mmol/L (21-32); CREATININE 0.1 mg/dL (0.6-1.3)
[2021-10-07 06:35] LABS: ANION GAP 14.6 (8-16); POTASSIUM 3.1 mmol/L (3.5-5.1)
[2021-10-07] MEDS: NUEDEXTA PO SCH ×2 (08:36→21:00)
[2021-10-07] MEDS: PANTOPRAZOLE 40 MG INJ VIAL IVP SCH ×2 (08:36→21:00)
[2021-10-07] MEDS: RILUZOLE 50MG TABLET PO SCH ×2 (08:36→21:00)
[2021-10-07] MEDS: POTASSIUM CHLORIDE 20% 40 MEQ/15 ML UDC GT PRN (11:00)
[2021-10-08] VITALS (22 sets, daily range): BP systolic 81–139; BP diastolic 42–90
[2021-10-08] MEDS: MORPHINE SULFATE 4 MG/ML SYR IV PRN ×3 (00:39→15:28)
[2021-10-08] MEDS: NACL 0.9% 1,000 ML IV SCH ×3 (01:20→21:33)
[2021-10-08] MEDS: ALBUTEROL SULFATE/IPRATROPIU 3 ML SOL IH SCH ×4 (01:49→19:31)
[2021-10-08 04:47] LABS: ANION GAP 10.8 (8-16); CARBON DIOXIDE 22.5 mmol/L (21-32); CREATININE 0.2 mg/dL (0.6-1.3); POTASSIUM 3.3 mmol/L (3.5-5.1)
[2021-10-08 05:09] LABS: BASOPHILS % (AUTO) 0.3 % (0.0-2.0); EOSINOPHILS # (AUTO) 0.3 K/uL (0-0.4); EOSINOPHILS % (AUTO) 2.3 % (0.0-4.0); HEMATOCRIT 31.8 % (36-48); HEMOGLOBIN 9.9 g/dL (12.0-16.0); LYMPHOCYTES # (AUTO) 2.3 K/uL (2.5-16.5); LYMPHOCYTES % (AUTO) 18.7 % (20.5-51.1); MEAN CORPUSCULAR HEMOGLOBIN 24 pg (27-31); MEAN CORPUSCULAR HGB CONC 31 g/dL (33-37); MEAN CORPUSCULAR VOLUME 76.4 fL (80-94); MONOCYTES # (AUTO) 0.6 K/uL (0.8-1.0); MONOCYTES % (AUTO) 4.9 % (1.7-9.3); NEUTROPHILS % (AUTO) 73.8 % (42.2-75.2); PLATELET COUNT (AUTO) 406 K/uL (140-450); RED BLOOD CELL COUNT(AUTO) 4.17 MIL/uL (4.20-5.40); RED CELL DISTRIBUTION WIDTH 45.3 % (11.6-13.7); WHITE BLOOD COUNT (AUTO) 12.2 K/uL (4.8-10.8)
[2021-10-08] MEDS: PANTOPRAZOLE 40 MG INJ VIAL IVP SCH ×2 (08:25→21:11)
[2021-10-08] MEDS: NUEDEXTA PO SCH ×2 (08:26→21:24)
[2021-10-08] MEDS: RILUZOLE 50MG TABLET PO SCH ×2 (08:27→21:33)
[2021-10-08] MEDS: POTASSIUM CHLORIDE 20% 40 MEQ/15 ML UDC GT PRN (19:51)
[2021-10-08] MEDS: ACETAMINOPHEN 325 MG TAB PO PRN (21:33)
[2021-10-09] VITALS (10 sets, daily range): BP systolic 96–127; BP diastolic 55–79
[2021-10-09] MEDS: ALBUTEROL SULFATE/IPRATROPIU 3 ML SOL IH SCH ×4 (01:00→19:10)
[2021-10-09] MEDS: MORPHINE SULFATE 4 MG/ML SYR IV PRN ×2 (02:37→14:51)
[2021-10-09 05:43] LABS: BASOPHILS % (AUTO) 0.4 % (0.0-2.0); EOSINOPHILS # (AUTO) 0.3 K/uL (0-0.4); EOSINOPHILS % (AUTO) 2.5 % (0.0-4.0); HEMATOCRIT 31.1 % (36-48); HEMOGLOBIN 9.6 g/dL (12.0-16.0); LYMPHOCYTES # (AUTO) 2.2 K/uL (2.5-16.5); LYMPHOCYTES % (AUTO) 18.3 % (20.5-51.1); MEAN CORPUSCULAR HEMOGLOBIN 24 pg (27-31); MEAN CORPUSCULAR HGB CONC 31 g/dL (33-37); MEAN CORPUSCULAR VOLUME 76.7 fL (80-94); MONOCYTES # (AUTO) 0.6 K/uL (0.8-1.0); MONOCYTES % (AUTO) 5.3 % (1.7-9.3); NEUTROPHILS # (AUTO) 8.7 K/uL (1.8-7.7); NEUTROPHILS % (AUTO) 73.5 % (42.2-75.2); PLATELET COUNT (AUTO) 388 K/uL (140-450); RED BLOOD CELL COUNT(AUTO) 4.06 MIL/uL (4.20-5.40); RED CELL DISTRIBUTION WIDTH 45.1 % (11.6-13.7); WHITE BLOOD COUNT (AUTO) 11.9 K/uL (4.8-10.8)
[2021-10-09 05:49] LABS: ANION GAP 9.6 (8-16); CARBON DIOXIDE 22.9 mmol/L (21-32); CREATININE 0.1 mg/dL (0.6-1.3); POTASSIUM 3.5 mmol/L (3.5-5.1)
[2021-10-09] MEDS: NACL 0.9% 1,000 ML IV SCH ×2 (08:03→16:13)
[2021-10-09] MEDS: PANTOPRAZOLE 40 MG INJ VIAL IVP SCH ×2 (08:45→20:50)
[2021-10-09] MEDS: NUEDEXTA PO SCH ×2 (08:49→22:45)
[2021-10-09] MEDS: RILUZOLE 50MG TABLET PO SCH ×2 (08:49→21:00)
[2021-10-09] MEDS: PIPERACILLIN/TAZOBACTAM 3.375 GM in DEXTROSE 5% 50 ML IV SCH ×2 (11:24→18:25)
[2021-10-09] MEDS: FOAM DRESSING TP SCH (13:04)
[2021-10-09] MEDS: Z-GUARD PASTE TP SCH (13:04)
[2021-10-09] MEDS ORDERED: DILTIAZEM 25 MG/5 ML VIAL IVP SCH (18:05)
[2021-10-10] VITALS: BP 103/69
[2021-10-10] MEDS: PIPERACILLIN/TAZOBACTAM 3.375 GM in DEXTROSE 5% 50 ML IV SCH ×4 (00:04→18:08)
[2021-10-10] MEDS: ALBUTEROL SULFATE/IPRATROPIU 3 ML SOL IH SCH ×4 (00:52→19:00)
[2021-10-10] MEDS: Z-GUARD PASTE TP SCH ×2 (01:00→13:20)
[2021-10-10] MEDS: NACL 0.9% 1,000 ML IV SCH ×2 (03:26→13:20)
[2021-10-10 05:36] VITALS: BP 99/58
[2021-10-10 08:00] VITALS: BP 97/68
[2021-10-10 08:54] LABS: HEMATOCRIT 31.8 % (36-48); HEMOGLOBIN 9.8 g/dL (12.0-16.0); MEAN CORPUSCULAR HEMOGLOBIN 24 pg (27-31); MEAN CORPUSCULAR HGB CONC 31 g/dL (33-37); MEAN CORPUSCULAR VOLUME 76.8 fL (80-94); PLATELET COUNT (AUTO) 532 K/uL (140-450); RED BLOOD CELL COUNT(AUTO) 4.14 MIL/uL (4.20-5.40); RED CELL DISTRIBUTION WIDTH 44.9 % (11.6-13.7); WHITE BLOOD COUNT (AUTO) 12.7 K/uL (4.8-10.8)
[2021-10-10] MEDS: PANTOPRAZOLE 40 MG INJ VIAL IVP SCH ×2 (09:14→21:00)
[2021-10-10] MEDS: NUEDEXTA PO SCH ×2 (09:15→21:00)
[2021-10-10 09:21] LABS: LYMPHOCYTES % (MANUAL) 22 % (20-46); MONOCYTES % (MANUAL) 4 % (5-12)
[2021-10-10] MEDS: RILUZOLE 50MG TABLET PO SCH ×2 (09:21→21:00)
[2021-10-10 09:29] LABS: ANION GAP 11.3 (8-16); CARBON DIOXIDE 22.8 mmol/L (21-32); POTASSIUM 3.1 mmol/L (3.5-5.1)
[2021-10-10 09:46] LABS: CREATININE 0.2 mg/dL (0.6-1.3)
[2021-10-10] MEDS: KCL 20 MEQ/WATER INJ PREMIX 200 ML IV PRN (11:26)
[2021-10-10 12:00] VITALS: BP 114/73
[2021-10-10] MEDS: FOAM DRESSING TP SCH (13:20)
[2021-10-10] MEDS ORDERED: VANCOMYCIN PER PHARMACY MC PRN (14:25)
[2021-10-10 16:00] VITALS: BP 98/46
[2021-10-10] MEDS: VANCOMYCIN 1,000 MG in DEXTROSE 5% 250 ML IV SCH (16:26)
[2021-10-10] MEDS: ACETAMINOPHEN 325 MG TAB PO PRN (18:08)
[2021-10-10 20:00] VITALS: BP 95/60
[2021-10-11] VITALS: BP 99/56
[2021-10-11] MEDS: PIPERACILLIN/TAZOBACTAM 3.375 GM in DEXTROSE 5% 50 ML IV SCH ×3 (00:01→12:07)
[2021-10-11] MEDS: Z-GUARD PASTE TP SCH ×2 (01:00→13:07)
[2021-10-11] MEDS: ALBUTEROL SULFATE/IPRATROPIU 3 ML SOL IH SCH ×4 (01:36→19:23)
[2021-10-11] MEDS: NACL 0.9% 1,000 ML IV SCH ×3 (02:15→20:32)
[2021-10-11 04:00] VITALS: BP 100/55
[2021-10-11] MEDS: VANCOMYCIN 1,000 MG in DEXTROSE 5% 250 ML IV SCH ×2 (04:00→16:39)
[2021-10-11 05:50] LABS: BASOPHILS # (AUTO) 0.1 K/uL (0.00-0.22); BASOPHILS % (AUTO) 0.5 % (0.0-2.0); EOSINOPHILS # (AUTO) 0.1 K/uL (0-0.4); EOSINOPHILS % (AUTO) 0.3 % (0.0-4.0); HEMATOCRIT 31.9 % (36-48); HEMOGLOBIN 9.8 g/dL (12.0-16.0); LYMPHOCYTES # (AUTO) 2.1 K/uL (2.5-16.5); LYMPHOCYTES % (AUTO) 13.2 % (20.5-51.1); MEAN CORPUSCULAR HEMOGLOBIN 24 pg (27-31); MEAN CORPUSCULAR HGB CONC 31 g/dL (33-37); MEAN CORPUSCULAR VOLUME 78.6 fL (80-94); MONOCYTES # (AUTO) 1.1 K/uL (0.8-1.0); MONOCYTES % (AUTO) 6.6 % (1.7-9.3); NEUTROPHILS # (AUTO) 12.7 K/uL (1.8-7.7); NEUTROPHILS % (AUTO) 79.4 % (42.2-75.2); PLATELET COUNT (AUTO) 677 K/uL (140-450); RED BLOOD CELL COUNT(AUTO) 4.06 MIL/uL (4.20-5.40); RED CELL DISTRIBUTION WIDTH 45.6 % (11.6-13.7); WHITE BLOOD COUNT (AUTO) 16.1 K/uL (4.8-10.8)
[2021-10-11 06:03] LABS: ANION GAP 13.2 (8-16); CARBON DIOXIDE 20.1 mmol/L (21-32); CREATININE 0.3 mg/dL (0.6-1.3); POTASSIUM 3.3 mmol/L (3.5-5.1)
[2021-10-11 06:04] LABS: MAGNESIUM 1.9 mg/dL (1.8-2.4); PHOSPHORUS 1.2 mg/dL (2.5-4.9)
[2021-10-11 08:00] VITALS: BP 90/54
[2021-10-11] MEDS: PANTOPRAZOLE 40 MG INJ VIAL IVP SCH ×2 (08:49→20:18)
[2021-10-11] MEDS: RILUZOLE 50MG TABLET PO SCH ×2 (08:49→20:36)
[2021-10-11] MEDS: NUEDEXTA PO SCH ×2 (08:49→20:36)
[2021-10-11] MEDS: KCL 20 MEQ/WATER INJ PREMIX 200 ML IV PRN (08:50)
[2021-10-11] MEDS: MORPHINE SULFATE 4 MG/ML SYR IV PRN ×2 (09:30→20:14)
[2021-10-11 12:00] VITALS: BP 92/57
[2021-10-11] MEDS: FOAM DRESSING TP SCH (13:07)
[2021-10-11 16:00] VITALS: BP 114/71
[2021-10-11] MEDS: ACETAMINOPHEN 325 MG TAB PO PRN (16:40)
[2021-10-11 20:00] VITALS: BP 132/83
[2021-10-11] MEDS ORDERED: MEROPENEM 1,000 MG VIAL IV ONE (20:02)
[2021-10-11] MEDS: MEROPENEM 1,000 MG in NACL 0.9% 50 ML IV SCH (20:41)
[2021-10-12] VITALS (7 sets, daily range): BP systolic 122–132; BP diastolic 73–87
[2021-10-12] MEDS: ALBUTEROL SULFATE/IPRATROPIU 3 ML SOL IH SCH ×4 (01:40→19:56)
[2021-10-12 03:18] LABS: BASOPHILS # (AUTO) 0.1 K/uL (0.00-0.22); BASOPHILS % (AUTO) 0.5 % (0.0-2.0); EOSINOPHILS % (AUTO) 0.3 % (0.0-4.0); HEMATOCRIT 30.2 % (36-48); HEMOGLOBIN 9.5 g/dL (12.0-16.0); LYMPHOCYTES # (AUTO) 2.4 K/uL (2.5-16.5); LYMPHOCYTES % (AUTO) 19.2 % (20.5-51.1); MEAN CORPUSCULAR HEMOGLOBIN 25 pg (27-31); MEAN CORPUSCULAR HGB CONC 31 g/dL (33-37); MEAN CORPUSCULAR VOLUME 78.3 fL (80-94); MONOCYTES # (AUTO) 0.9 K/uL (0.8-1.0); MONOCYTES % (AUTO) 6.8 % (1.7-9.3); NEUTROPHILS # (AUTO) 9.3 K/uL (1.8-7.7); NEUTROPHILS % (AUTO) 73.2 % (42.2-75.2); PLATELET COUNT (AUTO) 667 K/uL (140-450); RED BLOOD CELL COUNT(AUTO) 3.86 MIL/uL (4.20-5.40); RED CELL DISTRIBUTION WIDTH 45.2 % (11.6-13.7); WHITE BLOOD COUNT (AUTO) 12.7 K/uL (4.8-10.8)
[2021-10-12 03:27] LABS: ANION GAP 11.4 (8-16); CARBON DIOXIDE 22.8 mmol/L (21-32); CREATININE 0.2 mg/dL (0.6-1.3); POTASSIUM 3.2 mmol/L (3.5-5.1)
[2021-10-12 03:32] LABS: MAGNESIUM 1.8 mg/dL (1.8-2.4); PHOSPHORUS 1.6 mg/dL (2.5-4.9)
[2021-10-12] MEDS: Z-GUARD PASTE TP SCH ×2 (04:20→13:00)
[2021-10-12] MEDS: VANCOMYCIN 1,000 MG in DEXTROSE 5% 250 ML IV SCH (04:21)
[2021-10-12] MEDS ORDERED: MEROPENEM 1,000 MG VIAL IV ONE (06:27)
[2021-10-12] MEDS: MEROPENEM 1,000 MG in NACL 0.9% 50 ML IV SCH ×3 (06:51→20:26)
[2021-10-12] MEDS: NACL 0.9% 1,000 ML IV SCH ×2 (06:52→15:01)
[2021-10-12] MEDS: PANTOPRAZOLE 40 MG INJ VIAL IVP SCH ×2 (09:18→20:27)
[2021-10-12] MEDS: RILUZOLE 50MG TABLET PO SCH ×2 (09:23→20:29)
[2021-10-12] MEDS: NUEDEXTA PO SCH ×2 (09:23→20:29)
[2021-10-12] MEDS: POTASSIUM CHLORIDE 20% 40 MEQ/15 ML UDC GT PRN (09:25)
[2021-10-12] MEDS: VANCOMYCIN 750 MG in DEXTROSE 5% 250 ML IV SCH ×2 (13:00→20:30)
[2021-10-12] MEDS: FOAM DRESSING TP SCH (13:00)
[2021-10-12] MEDS: MORPHINE SULFATE 4 MG/ML SYR IV PRN (15:01)
[2021-10-13] VITALS: BP 135/77
[2021-10-13] MEDS: Z-GUARD PASTE TP SCH ×2 (01:00→13:30)
[2021-10-13] MEDS: NACL 0.9% 1,000 ML IV SCH ×2 (01:20→08:58)
[2021-10-13] MEDS: ALBUTEROL SULFATE/IPRATROPIU 3 ML SOL IH SCH ×3 (01:24→13:00)
[2021-10-13] MEDS: MORPHINE SULFATE 4 MG/ML SYR IV PRN (03:35)
[2021-10-13 04:00] VITALS: BP 111/65
[2021-10-13] MEDS: MEROPENEM 1,000 MG in NACL 0.9% 50 ML IV SCH ×2 (05:24→13:30)
[2021-10-13] MEDS: VANCOMYCIN 750 MG in DEXTROSE 5% 250 ML IV SCH (05:26)
[2021-10-13 06:02] LABS: MAGNESIUM 1.9 mg/dL (1.8-2.4); PHOSPHORUS 1.8 mg/dL (2.5-4.9)
[2021-10-13 06:17] LABS: ANION GAP 10.8 (8-16); CARBON DIOXIDE 23.5 mmol/L (21-32); CREATININE 0.3 mg/dL (0.6-1.3); POTASSIUM 3.3 mmol/L (3.5-5.1)
[2021-10-13 06:19] LABS: BASOPHILS # (AUTO) 0.1 K/uL (0.00-0.22); BASOPHILS % (AUTO) 0.4 % (0.0-2.0); EOSINOPHILS # (AUTO) 0.1 K/uL (0-0.4); EOSINOPHILS % (AUTO) 0.5 % (0.0-4.0); HEMATOCRIT 31.9 % (36-48); HEMOGLOBIN 9.9 g/dL (12.0-16.0); LYMPHOCYTES # (AUTO) 2.3 K/uL (2.5-16.5); LYMPHOCYTES % (AUTO) 19.2 % (20.5-51.1); MEAN CORPUSCULAR HEMOGLOBIN 25 pg (27-31); MEAN CORPUSCULAR HGB CONC 31 g/dL (33-37); MEAN CORPUSCULAR VOLUME 79.5 fL (80-94); MONOCYTES # (AUTO) 0.8 K/uL (0.8-1.0); MONOCYTES % (AUTO) 6.9 % (1.7-9.3); NEUTROPHILS # (AUTO) 8.6 K/uL (1.8-7.7); PLATELET COUNT (AUTO) 667 K/uL (140-450); RED BLOOD CELL COUNT(AUTO) 4.01 MIL/uL (4.20-5.40); RED CELL DISTRIBUTION WIDTH 45.4 % (11.6-13.7); WHITE BLOOD COUNT (AUTO) 11.7 K/uL (4.8-10.8)
[2021-10-13 08:00] VITALS: BP 105/64
[2021-10-13] MEDS: PANTOPRAZOLE 40 MG INJ VIAL IVP SCH (08:57)
[2021-10-13] MEDS: RILUZOLE 50MG TABLET PO SCH (08:58)
[2021-10-13] MEDS: NUEDEXTA PO SCH (08:58)
[2021-10-13 12:00] VITALS: BP 138/86
[2021-10-13] MEDS: FOAM DRESSING TP SCH (13:30)
[2021-10-13] MEDS ORDERED: Vancomycin Per Pharmacy MC (15:14)
[2021-10-13] MEDS ORDERED: MERO1PDS8 IV (15:14)
[2021-10-13] MEDS ORDERED: SULFAMETH/TRIMETH DS 800/160MG 1 TAB GT SCH (21:00)
[2021-10-13] MEDS ORDERED: VANCOMYCIN 500 MG in DEXTROSE 5% 100 ML IV SCH (21:00)
== END 2021-10-13 17:30 | DRG 5 ==
LOC: MED 12:09 → MTU 15:52 → MIC 15:52 → MTU 21:06 → MIC 09-26 09:41 → MTU 10-09 02:53
PROVIDERS: ADMIT Family Medicine; ATTEND Family Medicine
PROC: 5A1955Z Respiratory Ventilation, Greater than 96 Consecutive Hours (ICD-10-PCS; principal; 2021-09-26)
PROC: 5A12012 Performance of Cardiac Output, Single, Manual (ICD-10-PCS; 2021-09-26)
PROC: 30233N1 Transfusion of Nonautologous Red Blood Cells into Peripheral Vein, Percutaneous Approach (ICD-10-PCS; 2021-09-26)
PROC: 0BH17EZ Insertion of Endotracheal Airway into Trachea, Via Natural or Artificial Opening (ICD-10-PCS; 2021-09-26)
PROC: 02HV33Z Insertion of Infusion Device into Superior Vena Cava, Percutaneous Approach (ICD-10-PCS; 2021-09-26)
PROC: 4A10X4Z Monitoring of Central Nervous Electrical Activity, External Approach (ICD-10-PCS; 2021-10-02)
PROC: 0B110F4 Bypass Trachea to Cutaneous with Tracheostomy Device, Open Approach (ICD-10-PCS; 2021-10-10)
PROC: 0DH64UZ Insertion of Feeding Device into Stomach, Percutaneous Endoscopic Approach (ICD-10-PCS; 2021-10-10)
DX: I11.0 Hypertensive heart disease with heart failure (principal); I46.9 Cardiac arrest, cause unspecified; J12.82 Pneumonia due to coronavirus disease 2019; A41.9 Sepsis, unspecified organism; E43 Unspecified severe protein-calorie malnutrition; J15.6 Pneumonia due to other Gram-negative bacteria; R53.2 Functional quadriplegia; I50.43 Acute on chronic combined systolic (congestive) and diastolic (congestive) heart failure; U07.1 COVID-19; E87.0 Hyperosmolality and hypernatremia; J96.01 Acute respiratory failure with hypoxia; E87.8 Other disorders of electrolyte and fluid balance, not elsewhere classified; G35 Multiple sclerosis; M06.9 Rheumatoid arthritis, unspecified; Z20.822 Contact with and (suspected) exposure to COVID-19; J40 Bronchitis, not specified as acute or chronic; R13.10 Dysphagia, unspecified; E87.6 Hypokalemia; E83.42 Hypomagnesemia; E83.52 Hypercalcemia; K59.00 Constipation, unspecified; Y95 Nosocomial condition; Z99.3 Dependence on wheelchair; Z90.49 Acquired absence of other specified parts of digestive tract; Z86.74 Personal history of sudden cardiac arrest; Z74.01 Bed confinement status; Z79.899 Other long term (current) drug therapy
CPT/HCPCS: 31500; 36415; 36430; 36600; 70450; 71045; 71250; 74160; 80048; 80053; 80202; 80305; 81001; 82150; 82607; 82728; 82746; 82803; 83036; 83540; 83605; 83690; 83735; 83880; 84100; 84439; 84443; 84484; 85025; 85045; 85379; 85610; 85730; 86886; 86900; 86901; 86920; 87040; 87070; 87081; 87086; 87205; 87635-QW; 89220; 93005; 94002; 94003; 94640; 94761; 99285; C9113; J1170; J1644; J2001; J2060; J2185; J2270; J2543; J2704; J2916; J3010; J3370; J3475; J3480; J3490; J7030; J7060; P9016; Q0092; Q9967